=== PATIENT | male | born 1965 | race Caucasian/White ===

== ENCOUNTER 2019-04-06 05:41 | Day surgery (SDC) | payer MEDICARE ==
[2019-04-06] MEDS ORDERED: Lactated Ringers 1,000 ML IV SCH (06:00)
[2019-04-06] MEDS ORDERED: Ketamine HCl 50 MG/ML ONE (07:19)
[2019-04-06] MEDS ORDERED: DIPRIVAN 200 MG/20 ML IV ONE (07:19)
[2019-04-06 08:56] VITALS: BP 145/85; PULSE 88; O2SAT 98
--- NOTE | 2019-04-06 11:14 | OP ---
SURGERY DATE/TIME: 04/06/2019 0801 PREOPERATIVE DIAGNOSIS: Dysphagia. POSTOPERATIVE DIAGNOSIS: Mild gastritis. PROCEDURE: Esophagogastroduodenoscopy with cold forceps biopsy. SURGEON: Dr. Montoya. ANESTHESIA: Medications were given by the anesthesia department. BRIEF HISTORY: The patient is a 53 year old white male diabetic who complains of three months' worth difficulty with swallowing particularly with pills. He reports it has gotten somewhat better recently on omeprazole. The patient was felt the need to have endoscopic evaluation. He was appraised of the risks of the procedure including the risk of perforation, phlebitis, untoward reaction to medication, bleeding and missed lesions. The patient verbalized his understanding and desired to have the procedure performed. DESCRIPTION OF PROCEDURE: The patient was given the medications by the anesthesia department. He had continuous pulse oximetry, ECG monitoring, intermittent blood pressure monitoring and tidal CO2 monitoring during the examination. He was placed in the left lateral decubitus position. A bite block was placed and the flexible Olympus gastroscope was used to intubate the oropharynx. A view of the larynx was obtained and was normal. The scope was easily introduced in the esophagus which appeared to be normal throughout its length. The stomach was entered where normal gastric rugal folds were seen. The scope was passed along the greater curvature of the stomach to the antrum. The pylorus encountered and intubated. The duodenum inspected and found to be normal. The scope is withdrawn towards the stomach. A retroflex view obtained of the lesser curvature, fundus and cardia regions of the stomach and these appeared to be essentially normal. The scope was then redirected towards the gastric antrum and biopsies were obtained using cold biopsy technique to rule out the presence of Helicobacter pylori-type organisms. The scope was then removed from the patient who tolerated the procedure well and was sent back to the hospital [facility] in good condition.
== END 2019-04-06 09:05 | disposition home or self-care (01) ==
LOC: SDC 05:41
PROVIDERS: ATTEND Family Medicine
DX: K29.70 Gastritis, unspecified, without bleeding (principal); I10 Essential (primary) hypertension; E11.9 Type 2 diabetes mellitus without complications; Z79.4 Long term (current) use of insulin
CPT/HCPCS: 82962; 88305; J2704

== ENCOUNTER 2019-05-13 07:51 | Day surgery (SDC) | payer MEDICARE ==
[2019-05-13] MEDS ORDERED: Depo-Medrol 40 MG/ML IM ONE (07:52)
[2019-05-13] MEDS ORDERED: Marcaine 0.5% SDV 10 ML IJ ONE (07:52)
[2019-05-13] MEDS ORDERED: Ketamine HCl 50 MG/ML ONE (09:55)
[2019-05-13] MEDS ORDERED: DIPRIVAN 200 MG/20 ML IV ONE (09:55)
--- NOTE | 2019-05-13 10:41 | XRAY ---
26 seconds fluoroscopy time in surgery for bilateral SI joint injections.
--- NOTE | 2019-05-13 10:51 | XRAY ---
Indication: Bilateral SI joint injection. Intraoperative fluoroscopy was provided for 26 seconds. 4 digital spot images submitted for interpretation demonstrates posterior needle tip projecting over the inferior left and right SI joints. Correlate with intraoperative findings/report.
[2019-05-13] MEDS ORDERED: Lactated Ringers 1,000 ML IV ONE (15:16)
== END 2019-05-13 10:20 | disposition home or self-care (01) ==
LOC: SDC-PAIN 07:51
PROVIDERS: ATTEND Psychiatry & Neurology Pain Medicine
DX: M46.1 Sacroiliitis, not elsewhere classified (principal); E11.9 Type 2 diabetes mellitus without complications; I10 Essential (primary) hypertension; J44.9 Chronic obstructive pulmonary disease, unspecified; E78.5 Hyperlipidemia, unspecified; K57.90 Diverticulosis of intestine, part unspecified, without perforation or abscess without bleeding; F41.8 Other specified anxiety disorders; Z79.899 Other long term (current) drug therapy
CPT/HCPCS: 72202; 77002; 82962; G0260; 27096; J1030; J2704

== ENCOUNTER 2020-11-30 06:18 | Day surgery (SDC) | payer MEDICARE ==
[2020-11-30] MEDS ORDERED: Lactated Ringers 1,000 ML IV SCH (06:30)
[2020-11-30] MEDS ORDERED: Zofran 4 MG/2 ML VIAL IV STA (06:53)
[2020-11-30] MEDS ORDERED: DIPRIVAN 200 MG/20 ML IV ONE ×3 (08:00→08:23)
[2020-11-30] MEDS ORDERED: Lactated Ringers 1,000 ML IV ONE (08:02)
[2020-11-30 09:14] VITALS: BP 154/95; PULSE 86; O2SAT 99
--- NOTE | 2020-11-30 11:05 | OP ---
SURGERY DATE/TIME: 11/30/2020 0804 PREOPERATIVE DIAGNOSIS: Left lower quadrant abdominal pain. POSTOPERATIVE DIAGNOSES: 1) Ascending colon polyp. 2) Transverse colon polyp. 3) Sigmoid diverticulosis. PROCEDURE: Diagnostic colonoscopy. SURGEON: Cory Omer M.D. ANESTHESIA: MAC by Lobo Sanders CRNA. ESTIMATED BLOOD LOSS: Minimal. SPECIMENS: There are two hot snare polypectomies. DESCRIPTION OF PROCEDURE: After informed written consent was obtained, the patient was taken to the endoscopy suite. He was placed in left lateral decubitus position and anesthesia was titrated to desired level of consciousness. A digital rectal exam showed normal sphincter tone and no internal lesions. The scope was inserted into the rectum and sequentially the entire colonic mucosa was traversed. The level of cecum was reached and verified with direct visualization of the ileocecal valve. There was a sessile polyp in the ascending colon which was removed with a hot snare and retrieved after removal. The base was clean and the entire lesion removed. The same was encountered in the proximal transverse colon. A fairly large sessile polyp was likewise removed with hot snare in its entirety with hemostasis on complete removal of the lesion. Upon withdrawal careful mucosal inspection revealed diffuse diverticulosis mostly in the sigmoid region. No other obvious lesions or mucosal abnormalities were appreciable. Prior to withdrawal retroflexion showed no internal lesions. The scope was removed and the patient was transferred to the recovery room in good condition.
== END 2020-11-30 09:20 | disposition home or self-care (01) ==
LOC: SDC 06:18
PROVIDERS: ATTEND Family Medicine
DX: D12.2 Benign neoplasm of ascending colon (principal); K57.30 Diverticulosis of large intestine without perforation or abscess without bleeding; D12.3 Benign neoplasm of transverse colon; R10.32 Left lower quadrant pain; E11.9 Type 2 diabetes mellitus without complications; I10 Essential (primary) hypertension; Z79.899 Other long term (current) drug therapy
CPT/HCPCS: 82947; 88305; J2405; J2704

== ENCOUNTER 2022-04-26 09:21 | Observation (INO) | payer MEDICARE ==
[2022-04-26] MEDS ORDERED: BABY ASPIRIN 81 MG CHEW PO ONE (09:55)
[2022-04-26 10:06] LABS: Absolute Neutrophil Ct (ANC) 3.27 x10^3/uL (1.4-6.9); Basophil (Absolute #) 0.04 x10^3/uL (0-0.4); Eosinophil % 1.5 % (0.00-5.0); Hematocrit 45.1 % (42-50); Hemoglobin 14.3 g/dL (12.5-18.0); Lymphocyte (Absolute #) 2.96 x10^3/uL (1.0-4.6); Lymphocytes % 43.5 % (24.0-44.0); Mean Cell Volume 85.9 fL (78-100); Mean Corpuscular Hemoglobin 27.2 pg (26-32); Mean Corpuscular Hgb Concent. 31.7 g/dL (32-36); Mean Platelet Volume 9.8 fL (7.5-11.0); Monocyte (Absolute #) 0.42 x10^3/uL (0.0-1.3); Monocytes % 6.2 % (0.0-12.0); Neutrophil % 47.9 % (36.0-66.0); Platelet Count 245 x10^3/uL (150-450); Red Blood Count 5.25 x10^6/uL (4.1-5.6); White Blood Count 6.8 x10^3/uL (4.0-10.5)
[2022-04-26] MEDS ORDERED: BABY ASPIRIN 81 MG CHEW ONE (10:15)
[2022-04-26] MEDS ORDERED: DUONEB 0.5-3 MG/3 ml Neb IH ONE ×2 (10:19→10:23)
[2022-04-26 10:26] LABS: ALBUMIN 4.3 g/dL (3.5-5.0); ALKALINE PHOSPHATASE 68 U/L (38-126); ANION GAP 15.1 MEQ/L (5-15); BLOOD UREA NITROGEN 6 mg/dL (9-20); CHLORIDE 97 mmol/L (98-107); Calcium 9.3 mg/dL (8.4-10.2); Carbon Dioxide 25 mmol/L (22-30); Creatinine 1 1.01 mg/dL (0.66-1.25); EST GLOMERULAR FILTRATION RATE > 60.0 ML/MIN; Glucose 252 mg/dL (74-106); NT PRO BNP 14.6 pg/mL (0-900); Potassium 3.6 mmol/L (3.5-5.1); SGOT/AST 31 U/L (17-59); SGPT/ALT 27 U/L (0-50); SODIUM 133 mmol/L (137-145); Total Protein 7.7 g/dL (6.3-8.2)
--- NOTE | 2022-04-26 10:38 | XRAY ---
Indication: Pain and short of breath. Comparison: One day earlier Portable chest demonstrates stable minimal left base and new right midlung subsegmental atelectasis/scarring. Remaining heart and lungs unremarkable.
[2022-04-26] MEDS ORDERED: Zofran 4 MG/2 ML VIAL IV ONE (11:02)
[2022-04-26] MEDS ORDERED: MORPHINE SULFATE 4 MG INJ IV ONE (11:02)
[2022-04-26] MEDS ORDERED: Zofran 4 MG/2 ML VIAL ONE (11:25)
[2022-04-26] MEDS ORDERED: MORPHINE SULFATE 4 MG INJ ONE (11:26)
--- NOTE | 2022-04-26 11:48 | ERPHSYRPT ---
- History of Present Illness Time Seen by Provider: 04/26/22 10:18 Source: patient Exam Limitations: no limitations Patient Subjective Stated Complaint: C/O SOB that he has had for years. Patient indicates it has recently (past week) become worse. Patient states Dr. Omer completed a chest x-ray on him yesterday. Patient c/o chest pain during assessment that he states he has had "for years" pain is not new and patient indicates it happens after he smokes. Triage Nursing Assessment: Patient ambulated back to ED without difficulties. He is alert and oriented. Slight SOB noted after ambulated but breathing returned to normal rate and rythm quickly once he was on the bed. 02 sats 100% on room air. Skin dry; not diaphoretic. Physician History: 56 years old male with history of hypertension, hyperlipidemia, diabetes mellitus, tobacco abuse, COPD with respiratory failure needing oxygen at nighttime presented in the ER with intermittent chest pain and shortness of breath going on for quite some time and lately getting worse especially with activity and partial relief with resting. Difficulty breathing gets worse with lying down as well at times. Denies any history of CAD. Timing/Duration: day(s), gradual onset Activities at Onset: activity, rest Severity of Dyspnea-Max: moderate Severity of Dyspnea-Current: moderate Possible Cause: frequent episodes Modifying Factors: Improves With: rest. Worsens With: exertion Associated Symptoms: chest pain/discomfort, wheezing, heaviness, tightness, No edema Allergies/Adverse Reactions: Iodinated Contrast Media Allergy (Mild, Verified 04/26/22 09:26) Nausea/ flushed Home Medications: Amlodipine Besylate 5 mg [Norvasc 5 mg] 1 tab PO DAILY 04/26/22 [History] Bupropion HCl Xl 150 mg [Wellbutrin XL 150 MG] 1 tab PO DAILY 04/26/22 [History] Gabapentin [Neurontin] 1 cap PO TID 04/26/22 [History] Insulin Detemir [Levemir] 30 units SQ BID 04/26/22 [History] Insulin Lispro [Humalog] 10 unit SQ TID 04/26/22 [History] Omeprazole 1 tab PO DAILY 04/26/22 [History] Quetiapine Fumarate [Quetiapine Fumarate ER] 1 tab PO HS 04/26/22 [History] lisinopriL [Zestril] 1 tab PO DAILY 04/26/22 [History] Hx Tetanus, Diphtheria Vaccination/Date Given: Yes Hx Influenza Vaccination/Date Given: No Hx Pneumococcal Vaccination/Date Given: No Immunizations Up to Date: Yes Travel Risk - International Travel Have you traveled outside of the country in past 3 weeks: No - Coronavirus Screening Are you exhibiting any of the following symptoms?: Yes Symptoms: Shortness of Breath Close contact with a COVID-19 positive Pt in past 14-21 Days: No - Vaccine Status Have you recieved a Covid-19 vaccination: No - Review of Systems Constitutional: No Symptoms Eyes: No Symptoms Ears, Nose, & Throat: No Symptoms Respiratory: Cough, Dyspnea, Dyspnea on Exertion (STRINGER), Wheezing Cardiac: Chest Pain Abdominal/Gastrointestinal: No Symptoms Genitourinary Symptoms: No Symptoms Musculoskeletal: Arthralgias Skin: No Symptoms Psychological: No Symptoms Endocrine: No Symptoms Hematologic/Lymphatic: No Symptoms Immunological/Allergic: No Symptoms - Past Medical History Pertinent Past Medical History: Yes Neurological History: Peripheral Neuropathy ENT History: No Pertinent History Cardiac History: High Cholesterol, Hypertension Respiratory History: COPD, Sleep Apnea Endocrine Medical History: Diabetes Type II Musculoskeletal History: Other GI Medical History: GERD, Gallbladder Disease History: No Pertinent History Psycho-Social History: Anxiety, Depression Male Reproductive Disorders: No Pertinent History Other Medical History: Pt has seen [facility] 1 [facility] ago for chest pain. Pt also reports that he has seen Dr. Feldman 2 years ago and has sleep apnea. He has not had the sleep study or does not wear cpap. - Past Surgical History Past Surgical History: Yes Neuro Surgical History: No Pertinent History Cardiac: No Pertinent History Respiratory: No Pertinent History Gastrointestinal: Cholecystectomy Genitourinary: No Pertinent History Musculoskeletal: Orthopedic Surgery Male Surgical History: Other Other Surgical History: Hx of melanoma on right arm. Boil removed from scrotum, 2 rods and 6 screws in lower back. - Social History Smoking Status: Current every day smoker How long have you smoked: 41 years Exposure to second hand smoke: No Drug Use: none Patient Lives Alone: Yes - Nursing Vital Signs Nursing Vital Signs: Initial Vital Signs Temperature 97.4 F 04/26/22 09:28 Pulse Rate 100 H 04/26/22 09:28 Respiratory Rate 20 04/26/22 09:28 Blood Pressure 128/94 04/26/22 09:28 O2 Sat by Pulse Oximetry 100 04/26/22 09:28 Pain Scale Pain Intensity 2 - Physical Exam General Appearance: no apparent distress, alert Eye Exam: PERRL/EOMI Ears, Nose, Throat Exam: hearing grossly normal Neck Exam: normal inspection, full range of motion Respiratory Exam: diminished breath sounds, wheezing Cardiovascular/Chest Exam: normal heart sounds, regular rate/rhythm Abdominal/Gastrointestinal Exam: soft, normal bowel sounds, No tenderness Extremity Exam: non-tender, normal range of motion Neurologic Exam: alert, oriented x 3, cooperative Skin Exam: normal color SpO2 Interpretation: normal SpO2: 98 O2 Delivery: Room Air - Course EKG Interpreted by Me: RATE ([id number]), Sinus Tach, NORMAL AXIS, NORMAL INTERVALS, Q- wave, Non-specific ST Changes Ordered Tests: Active Orders 24 hr Category Date Time Status Process Line Operator STAT Care 04/26/22 09:55 Active EKG-ER Only STAT Care 04/26/22 09:55 Active IV Insertion STAT Care 04/26/22 09:55 Active Pulse Oximetry (ED) STAT Care 04/26/22 09:55 Active CHEST 1 VIEW (PORTABLE) Stat Exams 04/26/22 09:55 Completed CHEST WITH CONTRAST [CT] Stat Exams 04/26/22 10:53 Completed CBC W DIFF Stat Lab 04/26/22 09:50 Completed CMP Stat Lab 04/26/22 09:50 Completed D-DIMER QUANTITATIVE Stat Lab 04/26/22 09:50 Completed NT PRO BNP Stat Lab 04/26/22 09:50 Completed TROPONIN Q4H Lab 04/26/22 09:50 Completed TROPONIN Q4H Lab 04/26/22 14:00 Ordered TROPONIN Q4H Lab 04/26/22 18:00 Ordered Respiratory Therapy Assessment DAILY RT 04/26/22 10:35 Active Transfer Order Routine Transfer 04/26/22 Ordered Medication Summary Discontinued Medications Generic Name Dose Route Start Last Admin Trade Name Freq PRN Reason Stop Dose Admin Albuterol/Ipratropium 3 ml 04/26/22 10:19 04/26/22 10:25 Ipratropium/Albuterol Sulfate 3 Ml Ampul.Neb IH 04/26/22 10:20 3 ml STAT ONE Administration Albuterol/Ipratropium Confirm 04/26/22 10:23 Ipratropium/Albuterol Sulfate 3 Ml Ampul.Neb Administered 04/26/22 10:24 Dose 3 ml IH .STK-MED ONE Aspirin 324 mg 04/26/22 09:55 04/26/22 10:19 Aspirin 81 Mg Tab.Chew PO 04/26/22 09:56 324 mg STAT ONE Administration Aspirin Confirm 04/26/22 10:15 Aspirin 81 Mg Tab.Chew Administered 04/26/22 10:16 Dose 324 mg .ROUTE .STK-MED ONE Morphine Sulfate 4 mg 04/26/22 11:02 04/26/22 11:26 Morphine Sulfate 4 Mg/Ml Injection IV 04/26/22 11:03 4 mg STAT ONE Administration Morphine Sulfate Confirm 04/26/22 11:26 Morphine Sulfate 4 Mg/Ml Injection Administered 04/26/22 11:27 Dose 4 mg .ROUTE .STK-MED ONE Ondansetron HCl 4 mg 04/26/22 11:02 04/26/22 11:26 Ondansetron Hcl 4 Mg/2 Ml Vial IV 04/26/22 11:03 4 mg STAT ONE Administration Ondansetron HCl Confirm 04/26/22 11:25 Ondansetron Hcl 4 Mg/2 Ml Vial Administered 04/26/22 11:26 Dose 4 mg .ROUTE .STK-MED ONE Lab/Rad Data: Laboratory Result Diagrams 04/26/22 09:50 04/26/22 09:50 Laboratory Results 04/26/22 04/26/22 04/26/22 Range/Units Unknown 09:50 09:50 WBC (4.0-10.5) x10^3/uL RBC (4.1-5.6) x10^6/uL Hgb (12.5-18.0) g/dL Hct (42-50) % MCV (78-100) fL MCH (26-32) pg MCHC (32-36) g/dL RDW (11.5-14.0) % Plt Count (150-450) x10^3/uL MPV (7.5-11.0) fL Gran % (36.0-66.0) % Immature Gran % (Auto) (0.00-0.4) % Nucleat RBC Rel Count (0.00-0.1) % Eos # (Auto) (0-0.5) x10^3/uL Immature Gran # (Auto) (0.00-0.03) x10^3u/L Absolute Lymphs (auto) (1.0-4.6) x10^3/uL Absolute Monos (auto) (0.0-1.3) x10^3/uL Absolute Nucleated RBC (0.00-0.01) x10^3u/L Lymphocytes % (24.0-44.0) % Monocytes % (0.0-12.0) % Eosinophils % (0.00-5.0) % Basophils % (0.0-0.4) % Absolute Granulocytes (1.4-6.9) x10^3/uL Basophils # (0-0.4) x10^3/uL D-Dimer 0.93 H* (0.0-0.50) mg/L Sodium (137-145) mmol/L Potassium (3.5-5.1) mmol/L Chloride (98-107) mmol/L Carbon Dioxide (22-30) mmol/L Anion Gap (5-15) MEQ/L BUN (9-20) mg/dL Creatinine (0.66-1.25) mg/dL Estimated GFR ML/MIN Glucose (74-106) mg/dL Calcium (8.4-10.2) mg/dL Total Bilirubin (0.2-1.3) mg/dL AST (17-59) U/L ALT (0-50) U/L Alkaline Phosphatase (38-126) U/L Troponin I < 0.012 (0.000-0.034) ng/mL NT-Pro-B Natriuret Pep (0-900) pg/mL Serum Total Protein (6.3-8.2) g/dL Albumin (3.5-5.0) g/dL Influenza Type A Ag NEGATIVE (NEGATIVE) Influenza Type B Ag NEGATIVE (NEGATIVE) RSV (PCR) NEGATIVE (Negative) SARS-CoV-2 (PCR) NEGATIVE (NEGATIVE) 04/26/22 04/26/22 Range/Units 09:50 09:50 WBC 6.8 (4.0-10.5) x10^3/uL RBC 5.25 (4.1-5.6) x10^6/uL Hgb 14.3 (12.5-18.0) g/dL Hct 45.1 (42-50) % MCV 85.9 (78-100) fL MCH 27.2 (26-32) pg MCHC 31.7 L (32-36) g/dL RDW 14.0 (11.5-14.0) % Plt Count 245 (150-450) x10^3/uL MPV 9.8 (7.5-11.0) fL Gran % 47.9 (36.0-66.0) % Immature Gran % (Auto) 0.3 (0.00-0.4) % Nucleat RBC Rel Count 0.0 (0.00-0.1) % Eos # (Auto) 0.10 (0-0.5) x10^3/uL Immature Gran # (Auto) 0.02 (0.00-0.03) x10^3u/L Absolute Lymphs (auto) 2.96 (1.0-4.6) x10^3/uL Absolute Monos (auto) 0.42 (0.0-1.3) x10^3/uL Absolute Nucleated RBC 0.00 (0.00-0.01) x10^3u/L Lymphocytes % 43.5 (24.0-44.0) % Monocytes % 6.2 (0.0-12.0) % Eosinophils % 1.5 (0.00-5.0) % Basophils % 0.6 (0.0-0.4) % Absolute Granulocytes 3.27 (1.4-6.9) x10^3/uL Basophils # 0.04 (0-0.4) x10^3/uL D-Dimer (0.0-0.50) mg/L Sodium 133 L (137-145) mmol/L Potassium 3.6 (3.5-5.1) mmol/L Chloride 97 L (98-107) mmol/L Carbon Dioxide 25 (22-30) mmol/L Anion Gap 15.1 H (5-15) MEQ/L BUN 6 L (9-20) mg/dL Creatinine 1.01 (0.66-1.25) mg/dL Estimated GFR > 60.0 ML/MIN Glucose 252 H (74-106) mg/dL Calcium 9.3 (8.4-10.2) mg/dL Total Bilirubin 0.80 (0.2-1.3) mg/dL AST 31 (17-59) U/L ALT 27 (0-50) U/L Alkaline Phosphatase 68 (38-126) U/L Troponin I (0.000-0.034) ng/mL NT-Pro-B Natriuret Pep 14.6 (0-900) pg/mL Serum Total Protein 7.7 (6.3-8.2) g/dL Albumin 4.3 (3.5-5.0) g/dL Influenza Type A Ag (NEGATIVE) Influenza Type B Ag (NEGATIVE) RSV (PCR) (Negative) SARS-CoV-2 (PCR) (NEGATIVE) - Progress Progress: improved Air Movement: fair Progress Note: 04/26/22 13:52 56-year-old is evaluated for chest pain and shortness of breath going on for quite some time lately getting worse. EKG did not show any acute ST elevation and negative initial troponin. Chest x-ray negative for any acute cardiopulmonary findings. Chemistry is grossly unremarkable. Has elevated D- dimer and obtain CTA chest which is negative for pulmonary embolism, dissection, pneumonia or any other acute pathology. Patient has multiple risk factors for CAD, discussed with Dr. Bah, reviewed history, work-up and patient is excepted for admission. Blood Culture(s) Obtained: No Antibiotics given: No Discussed with : Alfreda Will see patient in: hospital (observation) Counseled pt/family regarding: lab results, diagnosis, rad results, smoking ralph sation - Departure Departure Disposition: Observation Clinical Impression: Chest pain, rule out acute myocardial infarction, COPD (chronic obstructive pulmonary disease) Condition: Stable Critical Care Time: No Referrals: NEHA HUGHES [Primary Care Provider] - Follow up/PCP as directed Instructions: Chronic Obstructive Pulmonary Disease
--- NOTE | 2022-04-26 12:27 | XRAY ---
Indication: Short of breath 2 weeks. COPD. Elevated d-dimer. Multiple contiguous axial images obtained through the chest using 100 cc Isovue 370 contrast and PE protocol. Comparison: November 15, 2020 Good opacification of the pulmonary arteries to include the lobar and segmental branches. No pulmonary embolus. Heart not enlarged. Aorta remains minimally arteriosclerotic without aneurysm/dissection. No pathologic mediastinal/hilar lymphadenopathy. Lungs again hyperinflated with minimally worsening bibasilar subsegmental atelectasis/scarring. New minor fissure thickening. Stable 5 mm peripheral right lower lobe and lingula noncalcified nodules favored to be benign given stability. No suspicious pulmonary mass, infiltrate or effusion. Bony thorax intact again with flowing osteophytes throughout the spine. Limited upper abdomen again demonstrates fatty liver and cholecystectomy clips. Impression: 1. Negative pulmonary embolus. No acute cardiopulmonary abnormalities. 2. Stable benign lingula/right lower lobe noncalcified micronodules, fatty liver, and chronic bony findings.
[2022-04-26 12:31] LABS: INFLUENZA A NEGATIVE (NEGATIVE); INFLUENZA B NEGATIVE (NEGATIVE); RESPIRATORY SYNCTIAL VIRUS NEGATIVE (Negative); SARS-CoV-2 Xpert Express NEGATIVE (NEGATIVE)
[2022-04-26] MEDS ORDERED: Zofran 4 MG/2 ML VIAL IV PRN (14:02)
[2022-04-26] MEDS ORDERED: DUONEB 0.5-3 MG/3 ml Neb IH SCH (14:02)
[2022-04-26] MEDS ORDERED: TYLENOL 325 MG PO PRN (14:02)
[2022-04-26] MEDS ORDERED: HUMALOG SQ PRN (14:02)
[2022-04-26] MEDS ORDERED: MORPHINE SULFATE 2 MG INJ IV PRN (14:02)
[2022-04-26] MEDS ORDERED: Nicoderm CQ 21 MG TOP SCH (16:00)
[2022-04-26] MEDS ORDERED: DUONEB 0.5-3 MG/3 ml Neb IH PRN (16:05)
[2022-04-26] MEDS ORDERED: MEDICATION INTERVENTION MC SCH (16:30)
[2022-04-26] MEDS: HUMALOG SQ SCH (16:44)
[2022-04-26] MEDS ORDERED: NON-FORMULARY ITEM (Insulin Lispro 1 UNIT Ml) SQ SCH (17:00)
[2022-04-26] MEDS ORDERED: AFRIN NASAL SPRAY NS ONE ×2 (20:04→20:09)
[2022-04-26] MEDS ORDERED: Protonix 20MG Tablet PO ONE (20:13)
[2022-04-26] MEDS: AFRIN NASAL SPRAY NS SCH ×2 (20:18→22:15)
[2022-04-26] MEDS ORDERED: Seroquel 100 MG PO SCH (22:00)
[2022-04-26] MEDS ORDERED: NEURONTIN PO SCH (22:00)
[2022-04-26] MEDS ORDERED: NON-FORMULARY ITEM (Gabapentin [Neurontin] 600 MG Tablet) PO SCH (22:00)
[2022-04-26] MEDS ORDERED: QUETIAPINE FUMARATE 400 MG PO SCH (22:00)
[2022-04-27] MEDS: HUMALOG SQ SCH (07:53)
[2022-04-27 08:04] VITALS: BP 127/68; PULSE 83; O2SAT 95
--- NOTE | 2022-04-27 08:32 | PCM.SSS ---
History of Present Illness - Chief Complaint Chief Complaint: CHEST PAIN RULE OUT ACUTE [place] History of Present Illness: is a 56 year old male who was seen in the office [address] Bah and had a positive d-dimer, he came to ER yesterday because he has had chest pain for the last several days. it is worse with movement of his arm, describes a dull ache. troponin negative x 3 yesterday (refused am blood draw today) and cta negative for PE, he feels well today and wants to get home to his dog. - Review of Systems Constitutional: No Fever, No Chills Respiratory: No Cough, No Short Of Breath Cardiac: Chest Pain Abdominal/Gastrointestinal: No Abdominal Pain, No Nausea, No Vomiting, No Diarrhea Medications & Allergies Home Medications: Home Medication List Amlodipine Besylate 5 mg [Norvasc 5 mg] 5 mg PO DAILY 04/26/22 [History Confirmed 04/26/22] Bupropion HCl Xl 150 mg [Wellbutrin XL 150 MG] 150 mg PO DAILY 04/26/22 [History Confirmed 04/26/22] Gabapentin [Neurontin] 600 mg PO TID 04/26/22 [History Confirmed 04/26/22] Insulin Detemir [Levemir] 30 units SQ BID 04/26/22 [History Confirmed 04/26/22] Insulin Lispro [Humalog] 10 unit SQ TIDWMEALS 04/26/22 [History Confirmed 04/26/22] Omeprazole 20 mg PO DAILY 04/26/22 [History Confirmed 04/26/22] Quetiapine Fumarate [Quetiapine Fumarate ER] 400 mg PO HS 04/26/22 [History Confirmed 04/26/22] lisinopriL [Zestril] 40 mg PO DAILY 04/26/22 [History Confirmed 04/26/22] Cyclobenzaprine HCl 10 mg [Cyclobenzaprine 10 MG] 10 mg PO TID PRN #20 tablet 04/27/22 [Rx] Allergies/Adverse Reactions: Allergies Allergy/AdvReac Type Severity Reaction Status Date / Time Iodinated Contrast Media Allergy Mild Nausea/ Verified 04/26/22 09:26 flushed - Past Medical History Past Medical History: Yes Neurological History: Peripheral Neuropathy ENT History: No Pertinent History Cardiac History: High Cholesterol, Hypertension Respiratory History: COPD, Sleep Apnea Endocrine Medical History: Diabetes Type II Musculoskelatal History: Other GI Medical History: GERD, Gallbladder Disease History: No Pertinent History Pyscho-Social History: Anxiety, Depression Male Reproductive Disorders: No Pertinent History Comment: Pt has seen Dr. Kline at [facility] over 1 year ago for chest pain. Pt also reports that he has seen Dr. Feldman 2 years ago and has sleep apnea. He has not had the sleep study or does not wear cpap. - Past Surgical History Past Surgical History: Yes Neuro Surgical History: No Pertinent History Cardiac History: No Pertinent History Respiratory Surgery: No Pertinent History GI Surgical History: Cholecystectomy Genitourinary Surgical Hx: No Pertinent History Musculskeletal Surgical Hx: Orthopedic Surgery Male Surgical History: Other Other Surgical History: Hx of melanoma on right arm. Boil removed from scrotum, 2 rods and 6 screws in lower back. - Social History Smoking Status: Current every day smoker How long have you smoked: 40 YEARS Exposure to second hand smoke: No Alcohol: None Drug Use: none - Physical Exam Vital Signs: Vital Signs - 24 hr Temp Pulse Resp BP Pulse Ox 04/27/22 08:00 97.4 F 83 17 127/68 95 04/27/22 04:00 97.1 F 80 18 106/73 98 04/26/22 23:29 97.1 F 82 20 138/92 97 04/26/22 20:00 97.1 F 93 H 26 H 126/77 96 04/26/22 18:49 78 20 96 04/26/22 15:12 66 18 99 04/26/22 14:05 97.7 F 69 22 122/73 97 04/26/22 13:53 98 04/26/22 13:15 68 18 124/79 95 04/26/22 12:26 68 18 115/82 99 04/26/22 11:24 78 22 117/83 98 04/26/22 10:25 86 20 97 04/26/22 09:55 100 04/26/22 09:28 97.4 F 100 H 20 128/94 100 General Appearance: obese Neurologic Exam: alert, oriented x 3 Respiratory Exam: normal breath sounds, lungs clear, diminished breath sounds, No respiratory distress Cardiovascular Exam: regular rate/rhythm, normal heart sounds, normal peripheral pulses Gastrointestinal/Abdomen Exam: soft, normal bowel sounds, No tenderness, No mass Extremity Exam: normal inspection, normal range of motion, pelvis stable Skin Exam: normal color, warm, dry, No rash Results - Labs Lab/Micro Results: Lab Results-Last 24 Hours 04/26/22 04/26/22 04/26/22 Range/Units 09:50 09:50 09:50 WBC 6.8 (4.0-10.5) x10^3/uL RBC 5.25 (4.1-5.6) x10^6/uL Hgb 14.3 (12.5-18.0) g/dL Hct 45.1 (42-50) % MCV 85.9 (78-100) fL MCH 27.2 (26-32) pg MCHC 31.7 L (32-36) g/dL RDW 14.0 (11.5-14.0) % Plt Count 245 (150-450) x10^3/uL MPV 9.8 (7.5-11.0) fL Gran % 47.9 (36.0-66.0) % Immature Gran % (Auto) 0.3 (0.00-0.4) % Nucleat RBC Rel Count 0.0 (0.00-0.1) % Eos # (Auto) 0.10 (0-0.5) x10^3/uL Immature Gran # (Auto) 0.02 (0.00-0.03) x10^3u/L Absolute Lymphs (auto) 2.96 (1.0-4.6) x10^3/uL Absolute Monos (auto) 0.42 (0.0-1.3) x10^3/uL Absolute Nucleated RBC 0.00 (0.00-0.01) x10^3u/L Lymphocytes % 43.5 (24.0-44.0) % Monocytes % 6.2 (0.0-12.0) % Eosinophils % 1.5 (0.00-5.0) % Basophils % 0.6 (0.0-0.4) % Absolute Granulocytes 3.27 (1.4-6.9) x10^3/uL Basophils # 0.04 (0-0.4) x10^3/uL D-Dimer 0.93 H* (0.0-0.50) mg/L Sodium 133 L (137-145) mmol/L Potassium 3.6 (3.5-5.1) mmol/L Chloride 97 L (98-107) mmol/L Carbon Dioxide 25 (22-30) mmol/L Anion Gap 15.1 H (5-15) MEQ/L BUN 6 L (9-20) mg/dL Creatinine 1.01 (0.66-1.25) mg/dL Estimated GFR > 60.0 ML/MIN Glucose 252 H (74-106) mg/dL POC Glucometer (74 to 106) mg/dL Calcium 9.3 (8.4-10.2) mg/dL Total Bilirubin 0.80 (0.2-1.3) mg/dL AST 31 (17-59) U/L ALT 27 (0-50) U/L Alkaline Phosphatase 68 (38-126) U/L Troponin I (0.000-0.034) ng/mL NT-Pro-B Natriuret Pep 14.6 (0-900) pg/mL Serum Total Protein 7.7 (6.3-8.2) g/dL Albumin 4.3 (3.5-5.0) g/dL Influenza Type A Ag (NEGATIVE) Influenza Type B Ag (NEGATIVE) RSV (PCR) (Negative) SARS-CoV-2 (PCR) (NEGATIVE) 04/26/22 04/26/22 04/26/22 Range/Units 09:50 14:25 16:43 WBC (4.0-10.5) x10^3/uL RBC (4.1-5.6) x10^6/uL Hgb (12.5-18.0) g/dL Hct (42-50) % MCV (78-100) fL MCH (26-32) pg MCHC (32-36) g/dL RDW (11.5-14.0) % Plt Count (150-450) x10^3/uL MPV (7.5-11.0) fL Gran % (36.0-66.0) % Immature Gran % (Auto) (0.00-0.4) % Nucleat RBC Rel Count (0.00-0.1) % Eos # (Auto) (0-0.5) x10^3/uL Immature Gran # (Auto) (0.00-0.03) x10^3u/L Absolute Lymphs (auto) (1.0-4.6) x10^3/uL Absolute Monos (auto) (0.0-1.3) x10^3/uL Absolute Nucleated RBC (0.00-0.01) x10^3u/L Lymphocytes % (24.0-44.0) % Monocytes % (0.0-12.0) % Eosinophils % (0.00-5.0) % Basophils % (0.0-0.4) % Absolute Granulocytes (1.4-6.9) x10^3/uL Basophils # (0-0.4) x10^3/uL D-Dimer (0.0-0.50) mg/L Sodium (137-145) mmol/L Potassium (3.5-5.1) mmol/L Chloride (98-107) mmol/L Carbon Dioxide (22-30) mmol/L Anion Gap (5-15) MEQ/L BUN (9-20) mg/dL Creatinine (0.66-1.25) mg/dL Estimated GFR ML/MIN Glucose (74-106) mg/dL POC Glucometer 177 H (74 to 106) mg/dL Calcium (8.4-10.2) mg/dL Total Bilirubin (0.2-1.3) mg/dL AST (17-59) U/L ALT (0-50) U/L Alkaline Phosphatase (38-126) U/L Troponin I < 0.012 < 0.012 (0.000-0.034) ng/mL NT-Pro-B Natriuret Pep (0-900) pg/mL Serum Total Protein (6.3-8.2) g/dL Albumin (3.5-5.0) g/dL Influenza Type A Ag (NEGATIVE) Influenza Type B Ag (NEGATIVE) RSV (PCR) (Negative) SARS-CoV-2 (PCR) (NEGATIVE) 04/26/22 04/26/22 04/26/22 Range/Units 17:55 21:43 Unknown WBC (4.0-10.5) x10^3/uL RBC (4.1-5.6) x10^6/uL Hgb (12.5-18.0) g/dL Hct (42-50) % MCV (78-100) fL MCH (26-32) pg MCHC (32-36) g/dL RDW (11.5-14.0) % Plt Count (150-450) x10^3/uL MPV (7.5-11.0) fL Gran % (36.0-66.0) % Immature Gran % (Auto) (0.00-0.4) % Nucleat RBC Rel Count (0.00-0.1) % Eos # (Auto) (0-0.5) x10^3/uL Immature Gran # (Auto) (0.00-0.03) x10^3u/L Absolute Lymphs (auto) (1.0-4.6) x10^3/uL Absolute Monos (auto) (0.0-1.3) x10^3/uL Absolute Nucleated RBC (0.00-0.01) x10^3u/L Lymphocytes % (24.0-44.0) % Monocytes % (0.0-12.0) % Eosinophils % (0.00-5.0) % Basophils % (0.0-0.4) % Absolute Granulocytes (1.4-6.9) x10^3/uL Basophils # (0-0.4) x10^3/uL D-Dimer (0.0-0.50) mg/L Sodium (137-145) mmol/L Potassium (3.5-5.1) mmol/L Chloride (98-107) mmol/L Carbon Dioxide (22-30) mmol/L Anion Gap (5-15) MEQ/L BUN (9-20) mg/dL Creatinine (0.66-1.25) mg/dL Estimated GFR ML/MIN Glucose (74-106) mg/dL POC Glucometer 162 H (74 to 106) mg/dL Calcium (8.4-10.2) mg/dL Total Bilirubin (0.2-1.3) mg/dL AST (17-59) U/L ALT (0-50) U/L Alkaline Phosphatase (38-126) U/L Troponin I < 0.012 (0.000-0.034) ng/mL NT-Pro-B Natriuret Pep (0-900) pg/mL Serum Total Protein (6.3-8.2) g/dL Albumin (3.5-5.0) g/dL Influenza Type A Ag NEGATIVE (NEGATIVE) Influenza Type B Ag NEGATIVE (NEGATIVE) RSV (PCR) NEGATIVE (Negative) SARS-CoV-2 (PCR) NEGATIVE (NEGATIVE) 04/27/22 Range/Units 07:05 WBC (4.0-10.5) x10^3/uL RBC (4.1-5.6) x10^6/uL Hgb (12.5-18.0) g/dL Hct (42-50) % MCV (78-100) fL MCH (26-32) pg MCHC (32-36) g/dL RDW (11.5-14.0) % Plt Count (150-450) x10^3/uL MPV (7.5-11.0) fL Gran % (36.0-66.0) % Immature Gran % (Auto) (0.00-0.4) % Nucleat RBC Rel Count (0.00-0.1) % Eos # (Auto) (0-0.5) x10^3/uL Immature Gran # (Auto) (0.00-0.03) x10^3u/L Absolute Lymphs (auto) (1.0-4.6) x10^3/uL Absolute Monos (auto) (0.0-1.3) x10^3/uL Absolute Nucleated RBC (0.00-0.01) x10^3u/L Lymphocytes % (24.0-44.0) % Monocytes % (0.0-12.0) % Eosinophils % (0.00-5.0) % Basophils % (0.0-0.4) % Absolute Granulocytes (1.4-6.9) x10^3/uL Basophils # (0-0.4) x10^3/uL D-Dimer (0.0-0.50) mg/L Sodium (137-145) mmol/L Potassium (3.5-5.1) mmol/L Chloride (98-107) mmol/L Carbon Dioxide (22-30) mmol/L Anion Gap (5-15) MEQ/L BUN (9-20) mg/dL Creatinine (0.66-1.25) mg/dL Estimated GFR ML/MIN Glucose (74-106) mg/dL POC Glucometer 153 H (74 to 106) mg/dL Calcium (8.4-10.2) mg/dL Total Bilirubin (0.2-1.3) mg/dL AST (17-59) U/L ALT (0-50) U/L Alkaline Phosphatase (38-126) U/L Troponin I (0.000-0.034) ng/mL NT-Pro-B Natriuret Pep (0-900) pg/mL Serum Total Protein (6.3-8.2) g/dL Albumin (3.5-5.0) g/dL Influenza Type A Ag (NEGATIVE) Influenza Type B Ag (NEGATIVE) RSV (PCR) (Negative) SARS-CoV-2 (PCR) (NEGATIVE) - Radiology Impressions Radiology Exams & Impressions: Radiology Procedures Category Date Time Status CHEST 1 VIEW (PORTABLE) Stat Exams 04/26/22 09:55 Completed CHEST WITH CONTRAST [CT] Stat Exams 04/26/22 10:53 Completed - Other Procedures and Tests Respiratory Therapy 04/26/22 10:35 Respiratory Therapy Assessment DAILY 04/26/22 15:45 Oxygen Nasal Cannula 2 lpm Assessment/Plan (1) Chest pain, rule out acute myocardial infarction Current Visit: Yes Status: Acute Assessment & Plan: IA ruled out, appears musculoskeletal on exam and history. will send home with cyclobenzaprine for muscle and f/u with his PCP Code(s): R07.9 - CHEST PAIN, UNSPECIFIED (2) COPD (chronic obstructive pulmonary disease) Current Visit: Yes Status: Acute Hospital Summary - Vitals & Intake/Output Vital Signs: Vital Signs Temperature 97.4 F 04/27/22 08:00 Pulse Rate 83 04/27/22 08:00 Respiratory Rate 17 04/27/22 08:00 Blood Pressure 127/68 04/27/22 08:00 O2 Sat by Pulse Oximetry 95 04/27/22 08:00 Intake & Output: Intake & Output 04/24/22 04/25/22 04/26/22 04/27/22 11:59 11:59 11:59 11:59 Intake Total 780 Balance 780 Weight 122.924 kg 121 kg - Lab Result Diagrams: 04/26/22 09:50 04/26/22 09:50 Lab Results-Last 24 Hrs: Lab Results-Last 24 Hours 04/26/22 04/26/2222 Range/Units 09:50 09:50 09:50 WBC 6.8 (4.0-10.5) x10^3/uL RBC 5.25 (4.1-5.6) x10^6/uL Hgb 14.3 (12.5-18.0) g/dL Hct 45.1 (42-50) % MCV 85.9 (78-100) fL MCH 27.2 (26-32) pg MCHC 31.7 L (32-36) g/dL RDW 14.0 (11.5-14.0) % Plt Count 245 (150-450) x10^3/uL MPV 9.8 (7.5-11.0) fL Gran % 47.9 (36.0-66.0) % Immature Gran % (Auto) 0.3 (0.00-0.4) % Nucleat RBC Rel Count 0.0 (0.00-0.1) % Eos # (Auto) 0.10 (0-0.5) x10^3/uL Immature Gran # (Auto) 0.02 (0.00-0.03) x10^3u/L Absolute Lymphs (auto) 2.96 (1.0-4.6) x10^3/uL Absolute Monos (auto) 0.42 (0.0-1.3) x10^3/uL Absolute Nucleated RBC 0.00 (0.00-0.01) x10^3u/L Lymphocytes % 43.5 (24.0-44.0) % Monocytes % 6.2 (0.0-12.0) % Eosinophils % 1.5 (0.00-5.0) % Basophils % 0.6 (0.0-0.4) % Absolute Granulocytes 3.27 (1.4-6.9) x10^3/uL Basophils # 0.04 (0-0.4) x10^3/uL D-Dimer 0.93 H* (0.0-0.50) mg/L Sodium 133 L (137-145) mmol/L Potassium 3.6 (3.5-5.1) mmol/L Chloride 97 L (98-107) mmol/L Carbon Dioxide 25 (22-30) mmol/L Anion Gap 15.1 H (5-15) MEQ/L BUN 6 L (9-20) mg/dL Creatinine 1.01 (0.66-1.25) mg/dL Estimated GFR > 60.0 ML/MIN Glucose 252 H (74-106) mg/dL POC Glucometer (74 to 106) mg/dL Calcium 9.3 (8.4-10.2) mg/dL Total Bilirubin 0.80 (0.2-1.3) mg/dL AST 31 (17-59) U/L ALT 27 (0-50) U/L Alkaline Phosphatase 68 (38-126) U/L Troponin I (0.000-0.034) ng/mL NT-Pro-B Natriuret Pep 14.6 (0-900) pg/mL Serum Total Protein 7.7 (6.3-8.2) g/dL Albumin 4.3 (3.5-5.0) g/dL Influenza Type A Ag (NEGATIVE) Influenza Type B Ag (NEGATIVE) RSV (PCR) (Negative) SARS-CoV-2 (PCR) (NEGATIVE) 04/26/22 04/26/22 04/26/22 Range/Units 09:50 14:25 16:43 WBC (4.0-10.5) x10^3/uL RBC (4.1-5.6) x10^6/uL Hgb (12.5-18.0) g/dL Hct (42-50) % MCV (78-100) fL MCH (26-32) pg MCHC (32-36) g/dL RDW (11.5-14.0) % Plt Count (150-450) x10^3/uL MPV (7.5-11.0) fL Gran % (36.0-66.0) % Immature Gran % (Auto) (0.00-0.4) % Nucleat RBC Rel Count (0.00-0.1) % Eos # (Auto) (0-0.5) x10^3/uL Immature Gran # (Auto) (0.00-0.03) x10^3u/L Absolute Lymphs (auto) (1.0-4.6) x10^3/uL Absolute Monos (auto) (0.0-1.3) x10^3/uL Absolute Nucleated RBC (0.00-0.01) x10^3u/L Lymphocytes % (24.0-44.0) % Monocytes % (0.0-12.0) % Eosinophils % (0.00-5.0) % Basophils % (0.0-0.4) % Absolute Granulocytes (1.4-6.9) x10^3/uL Basophils # (0-0.4) x10^3/uL D-Dimer (0.0-0.50) mg/L Sodium (137-145) mmol/L Potassium (3.5-5.1) mmol/L Chloride (98-107) mmol/L Carbon Dioxide (22-30) mmol/L Anion Gap (5-15) MEQ/L BUN (9-20) mg/dL Creatinine (0.66-1.25) mg/dL Estimated GFR ML/MIN Glucose (74-106) mg/dL POC Glucometer 177 H (74 to 106) mg/dL Calcium (8.4-10.2) mg/dL Total Bilirubin (0.2-1.3) mg/dL AST (17-59) U/L ALT (0-50) U/L Alkaline Phosphatase (38-126) U/L Troponin I < 0.012 < 0.012 (0.000-0.034) ng/mL NT-Pro-B Natriuret Pep (0-900) pg/mL Serum Total Protein (6.3-8.2) g/dL Albumin (3.5-5.0) g/dL Influenza Type A Ag (NEGATIVE) Influenza Type B Ag (NEGATIVE) RSV (PCR) (Negative) SARS-CoV-2 (PCR) (NEGATIVE) 04/26/22 04/26/22 04/26/22 Range/Units 17:55 21:43 Unknown WBC (4.0-10.5) x10^3/uL RBC (4.1-5.6) x10^6/uL Hgb (12.5-18.0) g/dL Hct (42-50) % MCV (78-100) fL MCH (26-32) pg MCHC (32-36) g/dL RDW (11.5-14.0) % Plt Count (150-450) x10^3/uL MPV (7.5-11.0) fL Gran % (36.0-66.0) % Immature Gran % (Auto) (0.00-0.4) % Nucleat RBC Rel Count (0.00-0.1) % Eos # (Auto) (0-0.5) x10^3/uL Immature Gran # (Auto) (0.00-0.03) x10^3u/L Absolute Lymphs (auto) (1.0-4.6) x10^3/uL Absolute Monos (auto) (0.0-1.3) x10^3/uL Absolute Nucleated RBC (0.00-0.01) x10^3u/L Lymphocytes % (24.0-44.0) % Monocytes % (0.0-12.0) % Eosinophils % (0.00-5.0) % Basophils % (0.0-0.4) % Absolute Granulocytes (1.4-6.9) x10^3/uL Basophils # (0-0.4) x10^3/uL D-Dimer (0.0-0.50) mg/L Sodium (137-145) mmol/L Potassium (3.5-5.1) mmol/L Chloride (98-107) mmol/L Carbon Dioxide (22-30) mmol/L Anion Gap (5-15) MEQ/L BUN (9-20) mg/dL Creatinine (0.66-1.25) mg/dL Estimated GFR ML/MIN Glucose (74-106) mg/dL POC Glucometer 162 H (74 to 106) mg/dL Calcium (8.4-10.2) mg/dL Total Bilirubin (0.2-1.3) mg/dL AST (17-59) U/L ALT (0-50) U/L Alkaline Phosphatase (38-126) U/L Troponin I < 0.012 (0.000-0.034) ng/mL NT-Pro-B Natriuret Pep (0-900) pg/mL Serum Total Protein (6.3-8.2) g/dL Albumin (3.5-5.0) g/dL Influenza Type A Ag NEGATIVE (NEGATIVE) Influenza Type B Ag NEGATIVE (NEGATIVE) RSV (PCR) NEGATIVE (Negative) SARS-CoV-2 (PCR) NEGATIVE (NEGATIVE) 04/27/22 Range/Units 07:05 WBC (4.0-10.5) x10^3/uL RBC (4.1-5.6) x10^6/uL Hgb (12.5-18.0) g/dL Hct (42-50) % MCV (78-100) fL MCH (26-32) pg MCHC (32-36) g/dL RDW (11.5-14.0) % Plt Count (150-450) x10^3/uL MPV (7.5-11.0) fL Gran % (36.0-66.0) % Immature Gran % (Auto) (0.00-0.4) % Nucleat RBC Rel Count (0.00-0.1) % Eos # (Auto) (0-0.5) x10^3/uL Immature Gran # (Auto) (0.00-0.03) x10^3u/L Absolute Lymphs (auto) (1.0-4.6) x10^3/uL Absolute Monos (auto) (0.0-1.3) x10^3/uL Absolute Nucleated RBC (0.00-0.01) x10^3u/L Lymphocytes % (24.0-44.0) % Monocytes % (0.0-12.0) % Eosinophils % (0.00-5.0) % Basophils % (0.0-0.4) % Absolute Granulocytes (1.4-6.9) x10^3/uL Basophils # (0-0.4) x10^3/uL D-Dimer (0.0-0.50) mg/L Sodium (137-145) mmol/L Potassium (3.5-5.1) mmol/L Chloride (98-107) mmol/L Carbon Dioxide (22-30) mmol/L Anion Gap (5-15) MEQ/L BUN (9-20) mg/dL Creatinine (0.66-1.25) mg/dL Estimated GFR ML/MIN Glucose (74-106) mg/dL POC Glucometer 153 H (74 to 106) mg/dL Calcium (8.4-10.2) mg/dL Total Bilirubin (0.2-1.3) mg/dL AST (17-59) U/L ALT (0-50) U/L Alkaline Phosphatase (38-126) U/L Troponin I (0.000-0.034) ng/mL NT-Pro-B Natriuret Pep (0-900) pg/mL Serum Total Protein (6.3-8.2) g/dL Albumin (3.5-5.0) g/dL Influenza Type A Ag (NEGATIVE) Influenza Type B Ag (NEGATIVE) RSV (PCR) (Negative) SARS-CoV-2 (PCR) (NEGATIVE) - Radiology Exams Ordered Rad Exams-Entire Visit: Radiology Procedures Category Date Time Status CHEST 1 VIEW (PORTABLE) Stat Exams 04/26/22 09:55 Completed CHEST WITH CONTRAST [CT] Stat Exams 04/26/22 10:53 Completed - Procedures and Test Procedures and Tests throughout Hospitalization: Therapy Orders & Screens 04/26/22 10:35 Respiratory Therapy Assessment DAILY Comment: 04/26/22 14:37 Smoking Cessation Education ONCE Comment: Diagnosis: CHEST PAIN RULE OUT ACUTE IA Smoking Status: Current every day smoker How long have you smoked: 40 YEARS Have you smoked in the past 12 months: Yes Approximately how many cigarettes per day: 1/2 PACK Do you dip or chew tobacco: No 04/26/22 15:45 Oxygen Nasal Cannula 2 lpm Comment: Diagnosis: CHEST PAIN RULE OUT ACUTE IA - Discharge Disposition: Home, Self-Care Condition: Stable Prescriptions: New Cyclobenzaprine HCl 10 mg [Cyclobenzaprine 10 MG] 10 mg PO TID PRN #20 tablet Continue Insulin Lispro [Humalog] 10 unit SQ TIDWMEALS Amlodipine Besylate 5 mg [Norvasc 5 mg] 5 mg PO DAILY Quetiapine Fumarate [Quetiapine Fumarate ER] 400 mg PO HS Bupropion HCl Xl 150 mg [Wellbutrin XL 150 MG] 150 mg PO DAILY Gabapentin [Neurontin] 600 mg PO TID Omeprazole 20 mg PO DAILY Insulin Detemir [Levemir] 30 units SQ BID lisinopriL [Zestril] 40 mg PO DAILY Instructions: Chest Pain (DC) Follow up with: NEHA HUGHES [Primary Care Provider] -
[2022-04-27] MEDS ORDERED: PROTONIX 40 MG IV IV SCH (10:00)
[2022-04-27] MEDS ORDERED: Wellbutrin XL 150 MG PO SCH (10:00)
[2022-04-27] MEDS ORDERED: NON-FORMULARY ITEM (Lisinopril [Zestril] 40 MG Tablet) PO SCH (10:00)
[2022-04-27] MEDS ORDERED: Protonix 20MG Tablet PO SCH (10:00)
[2022-04-27] MEDS ORDERED: Zestril 20 MG PO SCH (10:00)
[2022-04-27] MEDS ORDERED: ENOXAPARIN SODIUM SQ SCH (10:00)
[2022-04-27] MEDS ORDERED: AFRIN NASAL SPRAY NS SCH (10:00)
[2022-04-27] MEDS ORDERED: NON-FORMULARY ITEM (Omeprazole [Omeprazole] 20 MG Capsule.Dr) PO SCH (10:00)
[2022-04-27] MEDS ORDERED: NORVASC 5 MG PO SCH (10:00)
== END 2022-04-27 08:55 | disposition home or self-care (01) ==
LOC: ED 09:21 → MED SURG 13:55
PROVIDERS: ADMIT Family Medicine; ATTEND Family Medicine
DX: R07.9 Chest pain, unspecified (principal); J44.9 Chronic obstructive pulmonary disease, unspecified; I10 Essential (primary) hypertension; E11.9 Type 2 diabetes mellitus without complications; Z79.899 Other long term (current) drug therapy; Z20.828 Contact with and (suspected) exposure to other viral communicable diseases; Z72.0 Tobacco use
CPT/HCPCS: 0241U; 36000; 36415; 71045; 71260; 80053; 82947; 83880; 84484; 85025; 85379; 93005; 93041; 93268; 94640; 94760; 96374; 96375; 99285; G0378; J1817; J2270; J2405; A9270-GY

== ENCOUNTER 2023-08-13 00:44 | Emergency (ER) | payer MEDICARE ==
--- NOTE | 2023-08-13 01:28 | ERPHSYRPT ---
- History of Present Illness Time Seen by Provider: 08/13/23 00:48 Historian: patient Exam Limitations: no limitations Physician History: 57 years old male with history of hypertension, GERD, diabetes mellitus, diverticulitis presented in the ER with complaints of abdominal pain for the last 1 week with progressive worsening. Patient reports moderate intensity sharp pain with no significant aggravating or relieving factors. Reports associated loose stool which is always there with episodes of diverticulitis. Has some nausea but no vomiting. Denies any fever or chills. Patient reports she has been taking [id number] pain medication with no significant r elief. Allergies/Adverse Reactions: Iodinated Contrast Media Allergy (Mild, Verified 08/13/23 01:10) Nausea/ flushed Home Medications: Amlodipine Besylate 5 mg [Norvasc 5 mg] 5 mg PO DAILY 04/26/22 [History] Bupropion HCl Xl 150 mg [Wellbutrin XL 150 MG] 150 mg PO DAILY 04/26/22 [History] Gabapentin [Neurontin] 600 mg PO TID 04/26/22 [History] Insulin Detemir [Levemir] 30 units SQ BID 04/26/22 [History] Insulin Lispro [Humalog] 10 unit SQ ACHS 04/26/22 [History] Omeprazole 20 mg PO DAILY 04/26/22 [History] Quetiapine Fumarate [Quetiapine Fumarate ER] 400 mg PO HS 04/26/22 [History] lisinopriL [Zestril] 40 mg PO DAILY 04/26/22 [History] Carvedilol [Coreg ] 6.25 mg PO BID 08/13/23 [History] Semaglutide [Ozempic] 1 mg SQ WEEKLY 08/13/23 [History] Hx Tetanus, Diphtheria Vaccination/Date Given: Yes Hx Influenza Vaccination/Date Given: No Hx Pneumococcal Vaccination/Date Given: No Travel Risk - Vaccine Status Have you recieved a Covid-19 vaccination: No - Review of Systems Constitutional: No Symptoms Eyes: No Symptoms Ears, Nose, & Throat: No Symptoms Respiratory: No Symptoms Cardiac: No Symptoms Abdominal/Gastrointestinal: Abdominal Pain, Nausea, Diarrhea Genitourinary Symptoms: No Symptoms Musculoskeletal: No Symptoms Skin: No Symptoms Neurological: No Symptoms Psychological: No Symptoms Hematologic/Lymphatic: No Symptoms - Past Medical History Pertinent Past Medical History: Yes Neurological History: Peripheral Neuropathy ENT History: No Pertinent History Cardiac History: High Cholesterol, Hypertension Respiratory History: COPD, Sleep Apnea Endocrine Medical History: Diabetes Type II Musculoskeletal History: Other GI Medical History: GERD, Gallbladder Disease History: No Pertinent History Psycho-Social History: Anxiety, Depression Male Reproductive Disorders: No Pertinent History Other Medical History: Pt has seen Dr. Kline at [facility] over 1 year ago for chest pain. Pt also reports that he has seen Dr. Feldman 2 years ago and has sleep apnea. He has not had the sleep study or does not wear cpap. - Past Surgical History Past Surgical History: Yes Neuro Surgical History: No Pertinent History Cardiac: No Pertinent History Respiratory: No Pertinent History Gastrointestinal: Cholecystectomy Genitourinary: No Pertinent History Musculoskeletal: Orthopedic Surgery Male Surgical History: Other Other Surgical History: Hx of melanoma on right arm. Boil removed from scrotum, 2 rods and 6 screws in lower back. - Social History Smoking Status: Current every day smoker How long have you smoked: 40 YEARS Exposure to second hand smoke: No Drug Use: none Patient Lives Alone: Yes - Nursing Vital Signs Nursing Vital Signs: Initial Vital Signs Temperature 98.5 F 08/13/23 01:10 Pulse Rate 100 H 08/13/23 01:10 Respiratory Rate 22 08/13/23 01:10 Blood Pressure 121/81 08/13/23 01:10 O2 Sat by Pulse Oximetry 96 08/13/23 01:10 Pain Scale Pain Intensity 9 - Physical Exam General Appearance: no apparent distress, alert Eye Exam: PERRL/EOMI Ears, Nose, Throat Exam: normal ENT inspection Neck Exam: normal inspection, full range of motion Respiratory Exam: normal breath sounds, lungs clear Cardiovascular Exam: regular rate/rhythm, normal heart sounds Gastrointestinal/Abdomen Exam: soft, normal bowel sounds, tenderness (Mild generalized abdomen) Back Exam: normal inspection, normal range of motion Extremity Exam: normal inspection, normal range of motion Neurologic Exam: alert, oriented x 3, cooperative, non destructive testing inspector II-XII nml as tested Skin Exam: normal color SpO2 Interpretation: normal SpO2: 96 O2 Delivery: Room Air Ordered Tests: Active Orders 24 hr Category Date Time Status IV Insertion STAT Care 08/13/23 01:35 Active NPO (ED) STAT Care 08/13/23 01:35 Active ABDOMEN AND PELVIS W/0 CONTRAS [CT] Stat Exams 08/13/23 01:35 Completed CBC W DIFF Stat Lab 08/13/23 01:43 Completed CMP Stat Lab 08/13/23 01:43 Completed LIPASE Stat Lab 08/13/23 01:43 Completed UA W/RFX UR CULTURE Stat Lab 08/13/23 02:24 Completed Medication Summary Discontinued Medications Generic Name Dose Route Start Last Admin Trade Name Jordin PRN Reason Stop Dose Admin Hydrocodone Bitart/Acetaminophen 2 tab 08/13/23 02:55 Hydrocodone/Apap 5/325 1 Tab Tablet PO 08/13/23 02:56 SENT HOME W/ PATIENT ONE Sodium Chloride 1,000 mls @ 999 mls/hr 08/13/23 01:35 08/13/23 02:46 Sodium Chloride 0.9% 1000 Ml IV 08/13/23 02:35 Infused .Q1H1M STA Infusion Sodium Chloride Confirm 08/13/23 01:42 Sodium Chloride 0.9% 1000 Ml Administered 08/13/23 01:43 Dose 1,000 mls @ ud .ROUTE .STK-MED ONE Morphine Sulfate 4 mg 08/13/23 01:35 08/13/23 01:47 Morphine Sulfate 4 Mg/Ml Injection IV 08/13/23 01:36 4 mg STAT ONE Administration Morphine Sulfate Confirm 08/13/23 01:42 Morphine Sulfate 4 Mg/Ml Injection Administered 08/13/23 01:43 Dose 4 mg .ROUTE .STK-MED ONE Ondansetron HCl 4 mg 08/13/23 01:35 08/13/23 01:47 Ondansetron Hcl 4 Mg/2 Ml Vial IV 08/13/23 01:36 4 mg STAT ONE Administration Ondansetron HCl Confirm 08/13/23 01:42 Ondansetron Hcl 4 Mg/2 Ml Vial Administered 08/13/23 01:43 Dose 4 mg .ROUTE .STK-MED ONE Lab/Rad Data: Laboratory Result Diagrams 08/13/23 01:43 08/13/23 01:43 Laboratory Results 08/13/23 08/13/23 08/13/23 Range/Units 02:24 01:43 01:43 WBC 8.6 (4.0-10.5) x10^3/uL RBC 5.06 (4.1-5.6) x10^6/uL Hgb 14.6 (12.5-18.0) g/dL Hct 44.2 (42-50) % MCV 87.4 (78-100) fL MCH 28.9 (26-32) pg MCHC 33.0 (32-36) g/dL RDW 13.2 (11.5-14.0) % Plt Count 272 (150-450) x10^3/uL MPV 9.9 (7.5-11.0) fL Gran % 47.4 (36.0-66.0) % Immature Gran % (Auto) 0.1 (0.00-0.4) % Nucleat RBC Rel Count 0.0 (0.00-0.1) % Eos # (Auto) 0.09 (0-0.5) x10^3/uL Immature Gran # (Auto) 0.01 (0.00-0.03) x10^3u/L Absolute Lymphs (auto) 3.71 (1.0-4.6) x10^3/uL Absolute Monos (auto) 0.69 (0.0-1.3) x10^3/uL Absolute Nucleated RBC 0.00 (0.00-0.01) x10^3u/L Lymphocytes % 43.2 (24.0-44.0) % Monocytes % 8.0 (0.0-12.0) % Eosinophils % 1.0 (0.00-5.0) % Basophils % 0.3 (0.0-0.4) % Absolute Granulocytes 4.06 (1.4-6.9) x10^3/uL Basophils # 0.03 (0-0.4) x10^3/uL Sodium 135 L (137-145) mmol/L Potassium 3.4 L (3.5-5.1) mmol/L Chloride 101 (98-107) mmol/L Carbon Dioxide 23 (22-30) mmol/L Anion Gap 15.2 H (5-15) MEQ/L BUN 6 L (9-20) mg/dL Creatinine 0.91 (0.66-1.25) mg/dL Estimated GFR 99.5 ML/MIN Glucose 151 H (74-106) mg/dL Calcium 9.7 (8.4-10.2) mg/dL Total Bilirubin 0.70 (0.2-1.3) mg/dL AST 17 (17-59) U/L ALT 17 (0-50) U/L Alkaline Phosphatase 67 (38-126) U/L Serum Total Protein 7.5 (6.3-8.2) g/dL Albumin 4.4 (3.5-5.0) g/dL Lipase 196 (23-300) U/L Urine Color Yellow (Yellow) Urine Appearance Clear (Clear) Urine pH 6.5 (4.6-8.0) Ur Specific [place] <=1.005 (1.005-1.030) Urine Protein Negative (Negative) Urine Glucose (UA) Negative (Negative) mg/dL Urine Ketones Negative (Negative) Urine Blood Negative (Negative) Urine Nitrite Negative (Negative) Urine Bilirubin Negative (Negative) Urine Urobilinogen 0.2 (0.2) mg/dL Ur Leukocyte Esterase Negative (Negative) U Hyaline Cast (Auto) NONE SEEN (0-2) /LPF Urine Microscopic RBC 0-2 (0-5) /HPF Urine Microscopic WBC 0-2 (0-5) /HPF Ur Epithelial Cells None Seen (None Seen) /HPF Urine Bacteria None Seen (None Seen) /HPF Urine Culture Reflexed NO (NO) - Progress Progress: improved, pain not gone completely Progress Note: 08/13/23 02:56 57-year-old is evaluated for abdominal pain generalized more of her lower abdomen for 1 week with progressive worsening with associated diarrhea. Patient has history of diverticulitis. He is afebrile. He is given fluids and symptomatic treatment, on reevaluation his pain is better. No peritoneal signs on repeated evaluation. Workup showed normal white count, fairly unremarkable chemistries including lipase. Normal urinalysis. CT abdomen pelvis is showing questionable smudging at the head of pancreas but patient does not have any tenderness with normal lipase. I do not know the exact cause of his lower abdominal pain, could be related to previous surgery related to adhesions versus gastroenteritis, recommended supportive care and outpatient follow-up. Discussed signs symptoms of worsening needing return to ER which she seems understanding. Stable for discharge. Counseled pt/family regarding: lab results, diagnosis, need for follow-up, rad results Medical Desision Making - Independent Historian Additional History obtained from: Spouse - Diagnostic Testing Diagnostic test were ordered, analyzed, and reviewed by me: Yes Radiological Interpretation: Reviewed by me, Teleradiologist Report - Risk of complications The pt has a mod risk of morbidity or mortality based on: Need for prescription drug management - Departure Departure Disposition: Home Clinical Impression: Lower abdominal pain Condition: Stable Critical Care Time: No Referrals: KELVIN PRUITT MD [Primary Care Provider] - Follow up with PCP 1 day Instructions: Abdominal pain Additional Instructions: Take Tylenol as needed. Follow-up with your care for reevaluation. Increase fluid intake to keep up with your hydration. Return to ER for intractable abdominal pain, fever chills, blood in the stool, intractable vomiting etc. Prescriptions: Ondansetron ODT 4 MG [Zofran Odt 4 mg] 1 ea PO QIDPRN PRN #7 tablet PRN Reason: n/v
[2023-08-13 01:35] VITALS: TEMP 98.5
[2023-08-13] MEDS ORDERED: Zofran 4 MG/2 ML VIAL ONE (01:42)
[2023-08-13] MEDS ORDERED: Sodium Chloride 0.9% 1000 ML 1,000 ML ONE (01:42)
[2023-08-13] MEDS ORDERED: MORPHINE SULFATE 4 MG INJ ONE (01:42)
[2023-08-13 01:45] LABS: Absolute Neutrophil Ct (ANC) 4.06 x10^3/uL (1.4-6.9); BASOPHIL % 0.3 % (0.0-0.4); Basophil (Absolute #) 0.03 x10^3/uL (0-0.4); Eosinophil (Absolute #) 0.09 x10^3/uL (0-0.5); Hematocrit 44.2 % (42-50); Hemoglobin 14.6 g/dL (12.5-18.0); IMMATURE GRAN # 0.01 x10^3u/L (0.00-0.03); IMMATURE GRAN % 0.1 % (0.00-0.4); Lymphocyte (Absolute #) 3.71 x10^3/uL (1.0-4.6); Lymphocytes % 43.2 % (24.0-44.0); Mean Cell Volume 87.4 fL (78-100); Mean Corpuscular Hemoglobin 28.9 pg (26-32); Mean Platelet Volume 9.9 fL (7.5-11.0); Monocyte (Absolute #) 0.69 x10^3/uL (0.0-1.3); Neutrophil % 47.4 % (36.0-66.0); Platelet Count 272 x10^3/uL (150-450); Red Blood Count 5.06 x10^6/uL (4.1-5.6); Red Cell Distribution Width 13.2 % (11.5-14.0); White Blood Count 8.6 x10^3/uL (4.0-10.5)
[2023-08-13] MEDS: Sodium Chloride 0.9% 1000 ML 1,000 ML IV STA (01:46)
[2023-08-13] MEDS: MORPHINE SULFATE 4 MG INJ IV ONE (01:47)
[2023-08-13] MEDS: Zofran 4 MG/2 ML VIAL IV ONE (01:47)
[2023-08-13 01:59] LABS: ALBUMIN 4.4 g/dL (3.5-5.0); ANION GAP 15.2 MEQ/L (5-15); BILIRUBIN,TOTAL 0.7 mg/dL (0.2-1.3); Calcium 9.7 mg/dL (8.4-10.2); Creatinine 1 0.91 mg/dL (0.66-1.25); EST GLOMERULAR FILTRATION RATE 99.5 ML/MIN; Potassium 3.4 mmol/L (3.5-5.1); Total Protein 7.5 g/dL (6.3-8.2)
[2023-08-13 02:33] LABS: ADD URINE CULTURE? NO (NO); Appearance Clear (Clear); Bacteria None Seen /HPF (None Seen); Bilirubin Negative (Negative); Blood Negative (Negative); Epithelial Cells None Seen /HPF (None Seen); Glucose, Urine Negative (Negative); Hyaline Casts NONE SEEN /LPF (0-2); Ketones Negative (Negative); Leukocyte Esterase Negative (Negative); Nitrite Negative (Negative); Ph 6.5 (4.6-8.0); Protein,Urine Dip Negative (Negative); RBC 0-2 /HPF (0-5); Specific Gravity <=1.005 (1.005-1.030); Urobilinogen 0.2 mg/dL (0.2); WBC 0-2 /HPF (0-5)
--- NOTE | 2023-08-13 02:46 | XRAY ---
CLINICAL HISTORY: abd pain TECHNIQUE: CT of the abdomen and pelvis was performed with axial images as well as sagittal and coronal reconstruction images without intravenous contrast. DLP: 1201.54 (mGy-cm)n CTDIvol: 20.47 (mGy). COMPARISON: 10/04/2022. FINDINGS: Scanned lung bases are grossly unremarkable. The liver is normal in size, and morphology and appears unremarkable with no intrahepatic or extrahepatic bile duct dilation. The gall bladder is not visualized (surgically removed). Subtle fatty smudging is noted around the pancreatic head (with tiny regional reactionary lymph nodes). No pancreatic mass or ductal dilatation is seen. Unremarkable appearing spleen, an accessory splenule measuring 13 x 13 mm is noted. The adrenal glands are normal. The kidneys appear unremarkable with no calculi, cyst masses or hydronephrosis. The average caliber of both ureters. The urinary bladder is partially filled, no calculi are seen. The prostate is enlarged. Multiple non-complicated colonic diverticula are seen most appreciated at the sigmoid colon. The large and small bowel loops are of average caliber. A normal appendix is noted. No suspiciously enlarged retroperitoneal lymph nodes. Atherosclerotic calcification of the aorta, no aneurysmal dilations. L5-S1 hussain and screw fixation. IMPRESSION: 1. Subtle fatty smudging was noted around the pancreatic head. Correlation with serum pancreatic enzyme levels is advised to rule out pancreatitis. 2. Non-complicated colonic diverticulosis. 3. Prostatic enlargement. 4. No significant time interval changes. Electronically Signed by: Jesse Mensah MD. (08/13/2023 02:41:27 EST)
[2023-08-13 02:58] VITALS: O2SAT 96
[2023-08-13 03:06] VITALS: BP 122/76; PULSE 76; RESP 20
[2023-08-13] MEDS ORDERED: NORCO 5/325 MG ONE (03:07)
[2023-08-13] MEDS: NORCO 5/325 MG PO ONE (03:07)
== END 2023-08-13 03:18 | disposition home or self-care (01) ==
LOC: ED 00:44
DX: R10.30 Lower abdominal pain, unspecified (principal); R19.7 Diarrhea, unspecified; R11.0 Nausea; I10 Essential (primary) hypertension; E11.42 Type 2 diabetes mellitus with diabetic polyneuropathy; E78.5 Hyperlipidemia, unspecified; Z79.4 Long term (current) use of insulin; Z79.85 Long-term (current) use of injectable non-insulin antidiabetic drugs; Z79.899 Other long term (current) drug therapy; Z28.310 Unvaccinated for COVID-19; Z72.0 Tobacco use
CPT/HCPCS: 36000; 36415; 74176; 80053; 81001; 83690; 85025; 96374; 96375; 99284; J2270; J2405; A9270-GY

== ENCOUNTER 2023-12-28 10:59 | Emergency (ER) | payer MEDICARE ==
--- NOTE | 2023-12-28 11:14 | ERPHSYRPT ---
- History of Present Illness Time Seen by Provider: 12/28/23 11:13 Historian: patient Exam Limitations: no limitations Physician History: 58yo m presents via private vehicle for NBNB vomiting x 2d. Pt reports he ate vegatable soup 2 nights ago, has been vomiting since. Pt reports some associated chills and abdominal cramping but denies any fevers or diarrhea. Pt denies any known sick contacts, lives at home. Pt reports no PO intake for the past 1.5 days. Pt reports some associated mild dizziness that occurs after vomiting, denies any blurry vision or WOODRUFF, denies any hematochezia or melena, admits to some constipation for the past 3-4 days. Pt is not sure if he has passed flatus today or not. Pt denies cp, soa. Timing/Duration: day(s) (2) Activities at Onset: none Quality: cramping Pain Radiation: no radiation Severity of Pain-Max: mild Severity of Pain-Current: mild Modifying Factors: Improves With: vomiting Associated Symptoms: diaphoresis, loss of appetite, nausea, vomiting, No chest pain, No diarrhea, No fever/chills, No headache, No shortness of breath, No syncope Previous symptoms: no prior history Allergies/Adverse Reactions: Iodinated Contrast Media Allergy (Mild, Verified 12/28/23 11:08) Nausea/ flushed Home Medications: Amlodipine Besylate 5 mg [Norvasc 5 mg] 5 mg PO DAILY 04/26/22 [History] Bupropion HCl Xl 150 mg [Wellbutrin XL 150 MG] 150 mg PO DAILY 04/26/22 [History] Gabapentin [Neurontin] 600 mg PO TID 04/26/22 [History] Insulin Detemir [Levemir] 30 units SQ BID 04/26/22 [History] Insulin Lispro [Humalog] 10 unit SQ ACHS 04/26/22 [History] Omeprazole 20 mg PO DAILY 04/26/22 [History] Quetiapine Fumarate [Quetiapine Fumarate ER] 400 mg PO HS 04/26/22 [History] lisinopriL [Zestril] 40 mg PO DAILY 04/26/22 [History] Carvedilol [Coreg ] 6.25 mg PO BID 08/13/23 [History] Semaglutide [Ozempic] 1 mg SQ WEEKLY 08/13/23 [History] Hx Tetanus, Diphtheria Vaccination/Date Given: Yes Hx Influenza Vaccination/Date Given: No Hx Pneumococcal Vaccination/Date Given: No - Review of Systems Constitutional: Chills, No Fever Eyes: No Vision Changes, No Double Vision Ears, Nose, & Throat: Nose Congestion, Sinus Drainage, No Ear Pain Respiratory: No Symptoms Cardiac: No Chest Pain, No Edema, No Palpitations, No Syncope Abdominal/Gastrointestinal: Abdominal Pain, Nausea, Vomiting, Constipation, Jasvir etite Changes, No Diarrhea, No Hematemesis, No Hematochezia, No Melena Genitourinary Symptoms: No Symptoms - Past Medical History Pertinent Past Medical History: Yes Neurological History: Peripheral Neuropathy ENT History: No Pertinent History Cardiac History: High Cholesterol, Hypertension Respiratory History: COPD, Sleep Apnea Endocrine Medical History: Diabetes Type II Musculoskeletal History: Other GI Medical History: GERD, Gallbladder Disease History: No Pertinent History Psycho-Social History: Anxiety, Depression Male Reproductive Disorders: No Pertinent History Other Medical History: Pt has seen Dr. Kline at [facility] over 1 year ago for chest pain. Pt also reports that he has seen Dr. Feldman 2 years ago and has sleep apnea. He has not had the sleep study or does not wear cpap. - Past Surgical History Past Surgical History: Yes Neuro Surgical History: No Pertinent History Cardiac: No Pertinent History Respiratory: No Pertinent History Gastrointestinal: Cholecystectomy Genitourinary: No Pertinent History Musculoskeletal: Orthopedic Surgery Male Surgical History: Other Other Surgical History: Hx of melanoma on right arm. Boil removed from scrotum, 2 rods and 6 screws in lower back. - Social History Smoking Status: Current every day smoker How long have you smoked: 40 YEARS Exposure to second hand smoke: No Drug Use: none Patient Lives Alone: Yes - Nursing Vital Signs Nursing Vital Signs: Initial Vital Signs Temperature 97.1 F 12/28/23 10:59 Pulse Rate 80 12/28/23 10:59 Respiratory Rate 21 12/28/23 10:59 Blood Pressure 160/119 12/28/23 10:59 O2 Sat by Pulse Oximetry 100 12/28/23 10:59 Pain Scale Pain Intensity 0 - Physical Exam General Appearance: no apparent distress, alert Eye Exam: PERRL/EOMI, eyes nml inspection Respiratory Exam: normal breath sounds, lungs clear, airway intact, No chest tenderness, No respiratory distress Cardiovascular Exam: regular rate/rhythm, normal heart sounds Gastrointestinal/Abdomen Exam: soft, normal bowel sounds, No tenderness, No distention, No guarding Neurologic Exam: alert, oriented x 3, cooperative SpO2 Interpretation: normal SpO2: 99 O2 Delivery: Room Air - Course EKG Interpreted by Me: RATE (72), Sinus Rhythm, Other (pr 184, qtcb 451, not suggestive of acute ischemia) Ordered Tests: Active Orders 24 hr Category Date Time Status EKG-ER Only STAT Care 12/28/23 11:19 Active IV Insertion STAT Care 12/28/23 11:13 Active ABDOMEN AND PELVIS W/0 CONTRAS [CT] Stat Exams 12/28/23 11:44 Completed CBC W DIFF Stat Lab 12/28/23 11:30 Completed CMP Stat Lab 12/28/23 11:30 Completed LIPASE Stat Lab 12/28/23 11:30 Completed TROPONIN Q4H Lab 12/28/23 11:30 Completed TROPONIN Q4H Lab 12/28/23 15:30 Ordered TROPONIN Q4H Lab 12/28/23 19:30 Ordered Medication Summary Discontinued Medications Generic Name Dose Route Start Last Admin Trade Name Freq PRN Reason Stop Dose Admin Sodium Chloride 1,000 mls @ 999 mls/hr 12/28/23 11:13 12/28/23 12:23 Sodium Chloride 0.9% 1000 Ml IV 12/28/23 12:13 Infused .Q1H1M STA Infusion Sodium Chloride Confirm 12/28/23 11:19 Sodium Chloride 0.9% 1000 Ml Administered 12/28/23 11:20 Dose 1,000 mls @ ud .ROUTE .STK-MED ONE Ondansetron HCl 4 mg 12/28/23 11:13 12/28/23 11:19 Ondansetron Hcl 4 Mg/2 Ml Vial IV 12/28/23 11:14 4 mg STAT ONE Administration Ondansetron HCl Confirm 12/28/23 11:18 Ondansetron Hcl 4 Mg/2 Ml Vial Administered 12/28/23 11:19 Dose 4 mg .ROUTE .STK-MED ONE Lab/Rad Data: Laboratory Result Diagrams 12/28/23 11:30 12/28/23 11:30 Laboratory Results 12/28/23 12/28/23 12/28/23 Range/Units 11:30 11:30 11:30 WBC (4.23-9.07) x10^3/uL RBC (4.63-6.08) x10^6/uL Hgb (13.7-17.5) g/dL Hct (40.1-51.0) % MCV (79.0-92.2) fL MCH (25.7-32.2) pg MCHC (32.3-36.5) g/dL RDW (11.6-14.4) % Plt Count (163-337) x10^3/uL MPV (9.4-12.4) fL Gran % (34.0-67.9) % Immature Gran % (Auto) (0.001-0.429) % Nucleat RBC Rel Count (0.00-0.2) % Eos # (Auto) (0.04-0.54) x10^3/uL Immature Gran # (Auto) (0.001-0.031) x10^3u/L Absolute Lymphs (auto) (1.32-3.57) x10^3/uL Absolute Monos (auto) (0.30-0.82) x10^3/uL Absolute Nucleated RBC (0.00-0.012) x10^3u/L Lymphocytes % (21.8-53.1) % Monocytes % (5.3-12.2) % Eosinophils % (0.8-7.0) % Basophils % (0.2-1.2) % Absolute Granulocytes (1.78-5.38) x10^3/uL Basophils # (0.01-0.08) x10^3/uL Sodium 137 (135-145) mmol/L Potassium 4.0 (3.5-5.1) mmol/L Chloride 99 (98-107) mmol/L Carbon Dioxide 25 (22-30) mmol/L Anion Gap 16.8 H (5-15) MEQ/L BUN 5 L (9-20) mg/dL Creatinine 0.89 (0.66-1.25) mg/dL Estimated GFR 100.6 ML/MIN Glucose 179 H (74-106) mg/dL Calcium 10.5 H (8.4-10.2) mg/dL Total Bilirubin 1.20 (0.2-1.3) mg/dL AST 28 (17-59) U/L ALT 27 (0-50) U/L Alkaline Phosphatase 73 (38-126) U/L Troponin I < 0.012 (0.000-0.033) ng/mL Serum Total Protein 8.9 H (6.3-8.2) g/dL Albumin 5.1 H (3.5-5.0) g/dL Lipase 32 (23-300) U/L Influenza Type A Ag NEGATIVE (NEGATIVE) Influenza Type B Ag NEGATIVE (NEGATIVE) RSV (PCR) NEGATIVE (NEGATIVE) SARS-CoV-2 (PCR) NEGATIVE (NEGATIVE) 12/28/23 Range/Units 11:30 WBC 8.1 (4.23-9.07) x10^3/uL RBC 5.72 (4.63-6.08) x10^6/uL Hgb 16.4 (13.7-17.5) g/dL Hct 48.7 (40.1-51.0) % MCV 85.1 (79.0-92.2) fL MCH 28.7 (25.7-32.2) pg MCHC 33.7 (32.3-36.5) g/dL RDW 13.8 (11.6-14.4) % Plt Count 292 (163-337) x10^3/uL MPV 9.1 L (9.4-12.4) fL Gran % 64.7 (34.0-67.9) % Immature Gran % (Auto) 0.2 (0.001-0.429) % Nucleat RBC Rel Count 0.0 (0.00-0.2) % Eos # (Auto) 0.04 (0.04-0.54) x10^3/uL Immature Gran # (Auto) 0.02 (0.001-0.031) x10^3u/L Absolute Lymphs (auto) 2.39 (1.32-3.57) x10^3/uL Absolute Monos (auto) 0.37 (0.30-0.82) x10^3/uL Absolute Nucleated RBC 0.00 (0.00-0.012) x10^3u/L Lymphocytes % 29.5 (21.8-53.1) % Monocytes % 4.6 L (5.3-12.2) % Eosinophils % 0.5 L (0.8-7.0) % Basophils % 0.5 (0.2-1.2) % Absolute Granulocytes 5.25 (1.78-5.38) x10^3/uL Basophils # 0.04 (0.01-0.08) x10^3/uL Sodium (135-145) mmol/L Potassium (3.5-5.1) mmol/L Chloride (98-107) mmol/L Carbon Dioxide (22-30) mmol/L Anion Gap (5-15) MEQ/L BUN (9-20) mg/dL Creatinine (0.66-1.25) mg/dL Estimated GFR ML/MIN Glucose (74-106) mg/dL Calcium (8.4-10.2) mg/dL Total Bilirubin (0.2-1.3) mg/dL AST (17-59) U/L ALT (0-50) U/L Alkaline Phosphatase (38-126) U/L Troponin I (0.000-0.033) ng/mL Serum Total Protein (6.3-8.2) g/dL Albumin (3.5-5.0) g/dL Lipase (23-300) U/L Influenza Type A Ag (NEGATIVE) Influenza Type B Ag (NEGATIVE) RSV (PCR) (NEGATIVE) SARS-CoV-2 (PCR) (NEGATIVE) - Progress Progress: improved Progress Note: 12/28/23 13:29 no vomiting in ED reports feeling some improvement w/ IV fluids and zofran labs largely unremarkable viral panel negative for flu/covid/rsv ct abd/pel performed w/o contrast 2/[address] showed: 1. Findings in comparison with the previous study dated 08/13/2023: the fatty smudging around the pancreatic head is stable. 2. Stable Non-complicated colonic diverticulosis. 3. Stable prostatic enlargement. 4. No significant time interval changes likely viral gastritis will send prescription for zofran recommend tylenol/ibuprofen for discomfort, oral hydration w/ clear liquids/electrolyte containing fluids return to ED if: develop fever that does not respond to tylenol, develop chest pain, develop unbearable abdominal pain, develop bloody vomit or bloody stools Medical Desision Making - Diagnostic Testing Diagnostic test were ordered, analyzed, and reviewed by me: Yes Radiological Interpretation: Reviewed by me, Teleradiologist Report - Risk of complications Minimal Risk: Minimal risk of morbidity - Departure Departure Disposition: Home Clinical Impression: Vomiting Qualifiers: Vomiting type: unspecified Nausea presence: with nausea Qualified Code(s): R11.2 - Nausea with vomiting, unspecified Condition: Stable Critical Care Time: No Referrals: KELVIN PRUITT MD [Primary Care Provider] - Follow up/PCP as directed Additional Instructions: likely viral gastritis will send prescription for zofran recommend tylenol/ibuprofen for discomfort, oral hydration w/ clear liquids/electrolyte containing fluids, can take miralax for occasional constipation return to ED if: develop fever that does not respond to tylenol, develop chest pain, develop unbearable abdominal pain, develop bloody vomit or bloody stools
[2023-12-28 11:17] VITALS: TEMP 97.1
[2023-12-28] MEDS ORDERED: Zofran 4 MG/2 ML VIAL ONE (11:18)
[2023-12-28] MEDS ORDERED: Sodium Chloride 0.9% 1000 ML 1,000 ML ONE (11:19)
[2023-12-28] MEDS: Zofran 4 MG/2 ML VIAL IV ONE (11:19)
[2023-12-28] MEDS: Sodium Chloride 0.9% 1000 ML 1,000 ML IV STA (11:19)
[2023-12-28 11:31] LABS: Absolute Neutrophil Ct (ANC) 5.25 x10^3/uL (1.78-5.38); BASOPHIL % 0.5 % (0.2-1.2); Basophil (Absolute #) 0.04 x10^3/uL (0.01-0.08); Eosinophil % 0.5 % (0.8-7.0); Eosinophil (Absolute #) 0.04 x10^3/uL (0.04-0.54); Hematocrit 48.7 % (40.1-51.0); Hemoglobin 16.4 g/dL (13.7-17.5); IMMATURE GRAN # 0.02 x10^3u/L (0.001-0.031); IMMATURE GRAN % 0.2 % (0.001-0.429); Lymphocyte (Absolute #) 2.39 x10^3/uL (1.32-3.57); Lymphocytes % 29.5 % (21.8-53.1); Mean Cell Volume 85.1 fL (79.0-92.2); Mean Corpuscular Hemoglobin 28.7 pg (25.7-32.2); Mean Corpuscular Hgb Concent. 33.7 g/dL (32.3-36.5); Mean Platelet Volume 9.1 fL (9.4-12.4); Monocyte (Absolute #) 0.37 x10^3/uL (0.30-0.82); Monocytes % 4.6 % (5.3-12.2); Neutrophil % 64.7 % (34.0-67.9); Platelet Count 292 x10^3/uL (163-337); Red Blood Count 5.72 x10^6/uL (4.63-6.08); Red Cell Distribution Width 13.8 % (11.6-14.4); White Blood Count 8.1 x10^3/uL (4.23-9.07)
[2023-12-28 11:47] LABS: ALBUMIN 5.1 g/dL (3.5-5.0); ANION GAP 16.8 MEQ/L (5-15); BILIRUBIN,TOTAL 1.2 mg/dL (0.2-1.3); Calcium 10.5 mg/dL (8.4-10.2); Creatinine 1 0.89 mg/dL (0.66-1.25); EST GLOMERULAR FILTRATION RATE 100.6 ML/MIN; Total Protein 8.9 g/dL (6.3-8.2)
[2023-12-28 12:08] LABS: INFLUENZA A NEGATIVE (NEGATIVE); INFLUENZA B NEGATIVE (NEGATIVE); RESPIRATORY SYNCTIAL VIRUS NEGATIVE (NEGATIVE); SARS-CoV-2 Xpert Express NEGATIVE (NEGATIVE)
[2023-12-28 13:02] VITALS: BP 170/90; PULSE 65; RESP 17; O2SAT 99
--- NOTE | 2023-12-28 13:06 | XRAY ---
CLINICAL HISTORY: abd pain, n/v, constipation COMPARISON: CT: 08/13/2023. TECHNIQUE: CT of the abdomen and pelvis was performed with axial images as well as sagittal and coronal reconstruction images without intravenous contrast. One of the following dose reduction techniques was utilized for this exam. Automated exposure control, adjustment of the mA and/or kV according to patient size, and use of iterative reconstruction. DLP: 981.92 (mGy-cm)n CTDIvol: 16.18 (mGy). FINDINGS: Scanned lung bases are grossly unremarkable. The liver is normal in size, and morphology and appears unremarkable with no intrahepatic or extrahepatic bile duct dilation. Metal clips stand for previous cholecystectomy. Subtle fatty smudging is noted around the pancreatic head. Minimal fatty infiltrations were noted. No pancreatic mass or ductal dilatation is seen. Unremarkable appearing spleen, an accessory splenule measuring 13 x 13 mm is noted. The adrenal glands are normal. The kidneys appear unremarkable with no calculi, cysts, masses or hydronephrosis. Appendix appears unremarkable. The average caliber of both ureters. The urinary bladder is partially filled, no calculi are seen. The prostate is enlarged. Multiple non-complicated colonic diverticula are seen most appreciated at the sigmoid colon. The large and small bowel loops are of average caliber. No suspiciously enlarged retroperitoneal lymph nodes. Atherosclerotic calcification of the aorta and the iliac arteries, no aneurysmal dilations. L5-S1 hussain and screw fixation. IMPRESSION: 1. Findings in comparison with the previous study dated 08/13/2023: the fatty smudging around the pancreatic head is stable. 2. Stable Non-complicated colonic diverticulosis. 3. Stable prostatic enlargement. 4. No significant time interval changes Electronically Signed by: Jesse Mensah MD. (12/28/2023 13:01:22 EDT)
== END 2023-12-28 13:50 | disposition home or self-care (01) ==
LOC: ED 10:59
DX: R11.2 Nausea with vomiting, unspecified (principal); R68.83 Chills (without fever); R10.9 Unspecified abdominal pain; R42 Dizziness and giddiness; E78.5 Hyperlipidemia, unspecified; I10 Essential (primary) hypertension; E11.42 Type 2 diabetes mellitus with diabetic polyneuropathy; Z79.4 Long term (current) use of insulin; Z79.85 Long-term (current) use of injectable non-insulin antidiabetic drugs; Z79.899 Other long term (current) drug therapy; Z72.0 Tobacco use
CPT/HCPCS: 0241U; 36000; 36415; 74176; 80053; 83690; 84484; 85025; 93005; 96374; 99284; J2405

== ENCOUNTER 2024-10-09 13:21 | Emergency (ER) | payer MEDICARE ==
[2024-10-09 13:35] VITALS: TEMP 97.3
--- NOTE | 2024-10-09 13:36 | ERPHSYRPT ---
- History of Present Illness Source: patient Exam Limitations: no limitations Physician History: Patient has complaints of pain in his lateral lower chest. It is right over his lower ribs. He says it is constant there. It is a dull ache and becomes worse whenever he takes a deep breath or coughs or smokes. He says that the pain kind of comes on at times and gets worse and more intense. It has been going on for 3 weeks. It got a little bit worse today. He called his doctor and they did return the call and so decided to come in. He has not had any fever chills or other infectious symptoms. He does not have any classic chest pain. He is not sure if he is short of breath. He is a heavy smoker. He says that it hurts when he smokes 2. Allergies/Adverse Reactions: Iodinated Contrast Media Allergy (Mild, Verified 10/09/24 13:35) Nausea/ flushed Home Medications: Amlodipine Besylate 5 mg [Norvasc 5 mg] 5 mg PO DAILY 04/26/22 [History] Bupropion HCl Xl 150 mg [Wellbutrin XL 150 MG] 150 mg PO DAILY 04/26/22 [History] Gabapentin [Neurontin] 600 mg PO TID 04/26/22 [History] Insulin Detemir [Levemir] 30 units SQ BID 04/26/22 [History] Insulin Lispro [Humalog] 10 unit SQ ACHS 04/26/22 [History] Omeprazole 20 mg PO DAILY 04/26/22 [History] Quetiapine Fumarate [Quetiapine Fumarate ER] 400 mg PO HS 04/26/22 [History] lisinopriL [Zestril] 40 mg PO DAILY 04/26/22 [History] Carvedilol [Coreg ] 6.25 mg PO BID 08/13/23 [History] Semaglutide [Ozempic] 1 mg SQ WEEKLY 08/13/23 [History] Hx Tetanus, Diphtheria Vaccination/Date Given: Yes Hx Influenza Vaccination/Date Given: No Hx Pneumococcal Vaccination/Date Given: No Travel Risk - Emerging Infectious Disease Are you exhibiting symptoms associated with any current EIDs: Yes Symptoms: Headaches/Body Aches/, Vomitting - Review of Systems Constitutional: No Symptoms Eyes: No Symptoms Genitourinary Symptoms: No Symptoms Musculoskeletal: No Symptoms Skin: No Symptoms Neurological: No Symptoms All Other Systems: Reviewed and Negative - Past Medical History Pertinent Past Medical History: Yes Neurological History: Peripheral Neuropathy ENT History: No Pertinent History Cardiac History: High Cholesterol, Hypertension Respiratory History: COPD, Sleep Apnea Endocrine Medical History: Diabetes Type II Musculoskeletal History: Other GI Medical History: GERD, Gallbladder Disease History: No Pertinent History Psycho-Social History: Anxiety, Depression Male Reproductive Disorders: No Pertinent History Other Medical History: Pt has seen Dr. Kline at [facility] over 1 year ago for chest pain. Pt also reports that he has seen Dr. Feldman 2 years ago and has sleep apnea. He has not had the sleep study or does not wear cpap. - Past Surgical History Past Surgical History: Yes Neuro Surgical History: No Pertinent History Cardiac: No Pertinent History Respiratory: No Pertinent History Gastrointestinal: Cholecystectomy Genitourinary: No Pertinent History Musculoskeletal: Orthopedic Surgery Male Surgical History: Other Other Surgical History: Hx of melanoma on right arm. Boil removed from scrotum, 2 rods and 6 screws in lower back. - Social History Smoking Status: Current every day smoker How long have you smoked: 40 YEARS Exposure to second hand smoke: No Drug Use: none Patient Lives Alone: Yes - Social Determinants of Health Will the patient participate in the screening: Yes Do you worry about a steady place to live?: No In the past 12 months,have you had to go without utilities?: No Transportation Issues: No Has anyone in your support network made you feel unsafe?: No Have you or anyone in your house had to go w/o enough food: No - Nursing Vital Signs Nursing Vital Signs: Initial Vital Signs Temperature 97.3 F 10/09/24 13:27 Pulse Rate 105 H 10/09/24 13:27 Respiratory Rate 26 H 10/09/24 13:27 Blood Pressure 112/91 10/09/24 13:27 O2 Sat by Pulse Oximetry 99 10/09/24 13:27 Pain Scale Pain Intensity 8 - Physical Exam General Appearance: no apparent distress Eye Exam: PERRL/EOMI Respiratory Exam: other (The left lung is diminished with a little bit of coarseness compared to the right.), No chest tenderness, No respiratory distress Cardiovascular Exam: tachycardia Gastrointestinal/Abdomen Exam: soft, normal bowel sounds, No tenderness, No distention Neurologic Exam: alert, oriented x 3, cooperative Skin Exam: normal color, warm, dry - Course Nursing assessment & vital signs reviewed: Yes EKG Interpreted by Me: RATE, NORMAL AXIS, NORMAL INTERVALS, NORMAL QRS Ordered Tests: Active Orders 24 hr Category Date Time Status EKG-ER Only STAT Care 10/09/24 13:31 Active CHEST 2 VIEWS (PA AND LAT) Stat Exams 10/09/24 13:31 Completed CBC W DIFF Stat Lab 10/09/24 13:55 Completed CMP Stat Lab 10/09/24 13:55 Completed D-DIMER QUANTITATIVE Stat Lab 10/09/24 13:55 Completed LIPASE Stat Lab 10/09/24 13:55 Completed Lab/Rad Data: Laboratory Result Diagrams 10/09/24 13:55 10/09/24 13:55 Laboratory Results 10/09/24 10/09/24 10/09/24 Range/Units 13:55 13:55 13:55 WBC 6.4 (4.23-9.07) x10^3/uL RBC 5.22 (4.63-6.08) x10^6/uL Hgb 15.0 (13.7-17.5) g/dL Hct 44.5 (40.1-51.0) % MCV 85.2 (79.0-92.2) fL MCH 28.7 (25.7-32.2) pg MCHC 33.7 (32.3-36.5) g/dL RDW 13.9 (11.6-14.4) % Plt Count 221 (163-337) x10^3/uL MPV 8.9 L (9.4-12.4) fL Gran % 58.5 (34.0-67.9) % Immature Gran % (Auto) 0.2 (0.001-0.429) % Nucleat RBC Rel Count 0.0 (0.00-0.2) % Eos # (Auto) 0.05 (0.04-0.54) x10^3/uL Immature Gran # (Auto) 0.01 (0.001-0.031) x10^3u/L Absolute Lymphs (auto) 2.14 (1.32-3.57) x10^3/uL Absolute Monos (auto) 0.41 (0.30-0.82) x10^3/uL Absolute Nucleated RBC 0.00 (0.00-0.012) x10^3u/L Lymphocytes % 33.6 (21.8-53.1) % Monocytes % 6.4 (5.3-12.2) % Eosinophils % 0.8 (0.8-7.0) % Basophils % 0.5 (0.2-1.2) % Absolute Granulocytes 3.72 (1.78-5.38) x10^3/uL Basophils # 0.03 (0.01-0.08) x10^3/uL D-Dimer 0.55 H (0.0-0.50) mg/L Sodium 136 (135-145) mmol/L Potassium 3.4 L (3.5-5.1) mmol/L Chloride 101 (98-107) mmol/L Carbon Dioxide 23 (22-30) mmol/L Anion Gap 16.2 H (5-15) MEQ/L BUN 6 L (9-20) mg/dL Creatinine 0.82 (0.66-1.25) mg/dL Estimated GFR 102.5 ML/MIN Glucose 139 H (74-106) mg/dL Calcium 9.5 (8.4-10.2) mg/dL Total Bilirubin 0.70 (0.2-1.3) mg/dL AST 20 (17-59) U/L ALT 16 (0-50) U/L Alkaline Phosphatase 67 (38-126) U/L Serum Total Protein 7.2 (6.3-8.2) g/dL Albumin 4.4 (3.5-5.0) g/dL Lipase 20 L (23-300) U/L - Progress Progress: unchanged Progress Note: Patient was stable throughout stay on the differential was musculoskeletal pain, pleurisy, pulmonary embolism, less likely would be a coronary vascular event. On arrival examined him and pushed on his lateral ribs it was very tender and reproduce the pain. I think is coming from that area. His chest exam was fairly clear. I got a chest x-ray did not show any abnormalities on PA or lateral. EKG was done as interpreted by me. Is completely normal. Normal sinus rhythm no ST or T changes and no axis deviation. His labs all looked good and his D-dimer was not elevated. I think his musculoskeletal pain. And when to have him continue his ibuprofen which his primary doctor put him on and I am going to add few Roland. 10/09/24 14:37 Medical Desision Making - Independent Historian Additional History obtained from: Spouse - Risk of complications Low Risk: Low risk of morbidity from additional dx testing or treatment - Departure Departure Disposition: Home Clinical Impression: Left-sided chest wall pain Condition: Stable Critical Care Time: No Referrals: JANETH ARIAS DO [Primary Care Provider, [facility]] - Follow up/PCP as directed Additional Instructions: Medications as directed Follow-up with primary care doctor Return if symptoms worsen
[2024-10-09 13:46] VITALS: BP 142/89; PULSE 85; RESP 22; O2SAT 99
--- NOTE | 2024-10-09 13:58 | XRAY ---
Indication: Chest pain. Comparison: April 26, 2022 PA/lateral chest again hyperinflated with minimal left base subsegmental atelectasis/scarring. Remaining heart and lungs unremarkable. Bony thorax intact again with osteopenia and mild degenerative changes. No acute findings.
[2024-10-09 14:00] LABS: Absolute Neutrophil Ct (ANC) 3.72 x10^3/uL (1.78-5.38); BASOPHIL % 0.5 % (0.2-1.2); Basophil (Absolute #) 0.03 x10^3/uL (0.01-0.08); Eosinophil % 0.8 % (0.8-7.0); Eosinophil (Absolute #) 0.05 x10^3/uL (0.04-0.54); Hematocrit 44.5 % (40.1-51.0); IMMATURE GRAN # 0.01 x10^3u/L (0.001-0.031); IMMATURE GRAN % 0.2 % (0.001-0.429); Lymphocyte (Absolute #) 2.14 x10^3/uL (1.32-3.57); Lymphocytes % 33.6 % (21.8-53.1); Mean Cell Volume 85.2 fL (79.0-92.2); Mean Corpuscular Hemoglobin 28.7 pg (25.7-32.2); Mean Corpuscular Hgb Concent. 33.7 g/dL (32.3-36.5); Mean Platelet Volume 8.9 fL (9.4-12.4); Monocyte (Absolute #) 0.41 x10^3/uL (0.30-0.82); Monocytes % 6.4 % (5.3-12.2); Neutrophil % 58.5 % (34.0-67.9); Platelet Count 221 x10^3/uL (163-337); Red Blood Count 5.22 x10^6/uL (4.63-6.08); Red Cell Distribution Width 13.9 % (11.6-14.4); White Blood Count 6.4 x10^3/uL (4.23-9.07)
[2024-10-09 14:13] LABS: ALBUMIN 4.4 g/dL (3.5-5.0); ANION GAP 16.2 MEQ/L (5-15); BILIRUBIN,TOTAL 0.7 mg/dL (0.2-1.3); Calcium 9.5 mg/dL (8.4-10.2); Creatinine 1 0.82 mg/dL (0.66-1.25); EST GLOMERULAR FILTRATION RATE 102.5 ML/MIN; Potassium 3.4 mmol/L (3.5-5.1); Total Protein 7.2 g/dL (6.3-8.2)
== END 2024-10-09 14:52 | disposition home or self-care (01) ==
LOC: ED 13:21
DX: R07.9 Chest pain, unspecified (principal); E78.5 Hyperlipidemia, unspecified; I10 Essential (primary) hypertension; E11.42 Type 2 diabetes mellitus with diabetic polyneuropathy; Z79.4 Long term (current) use of insulin; Z79.85 Long-term (current) use of injectable non-insulin antidiabetic drugs; Z79.899 Other long term (current) drug therapy; Z72.0 Tobacco use
CPT/HCPCS: 36415; 71046; 80053; 83690; 85025; 85379; 93005; 99283; 99285